=== PATIENT | female | born 1995 | race Two or more races ===

== ENCOUNTER → 2017-02-08 | Outpatient (CLI) | payer SELFPAY ==
[~2017-02-08] MED LIST: ACET325T PO; CALNTAB; FOLI400T PO
[2017-02-08 09:06] LABS: BASOPHIL % 0.3 % (0.0-2.0); EOSINOPHIL # 0.2 TH/MM3 (0-0.4); EOSINOPHIL % 2.3 % (0.0-4.0); HEMATOCRIT 31.6 % (35.0-46.0); HEMO FLAGS DIFF FINAL; LYMPH % 26.1 % (9.0-44.0); MEAN CELL VOLUME 84.8 FL (80.0-100.0); MEAN CORPUSCULAR HEMOGLOBIN 27.5 PG (27.0-34.0); MEAN CORPUSCULAR HGB CONC 32.4 % (32.0-36.0); MONO % 6.2 % (0.0-8.0); NEUT % 65.1 % (16.0-70.0); PLATELET COUNT 324 TH/MM3 (150-450); RED BLOOD COUNT 3.72 MIL/MM3 (4.00-5.30); RED CELL DISTRIBUTION WIDTH 15.4 % (11.6-17.2); WHITE BLOOD COUNT 7.7 TH/MM3 (4.0-11.0)
[2017-02-08 10:57] LABS: CREAT 24 TIMED 30.9 MG/DL; URINE TOTAL PROTEIN TIMED 273.1 MG/DL
== END ==
LOC: EDBD → CLAB 02-06 10:38
PROVIDERS: ATTEND Obstetrics & Gynecology
DX: O26.832 Pregnancy related renal disease, second trimester (principal); Z13.0 Encounter for screening for diseases of the blood and blood-forming organs and certain disorders involving the immune mechanism
CPT/HCPCS: 36415; 82575; 84157; 85025

== ENCOUNTER 2017-02-09 10:19 | Inpatient (IN) | payer MEDICAID ==
[2017-02-09] VITALS (27 sets, daily range): BP systolic 112–133; BP diastolic 55–82; PULSE 65–87; RESP 18; TEMP 97.8–98.7
[~2017-02-09] VITALS: Ht 165.1 cm; Wt 79.8 kg
[2017-02-09] MEDS ORDERED: CALNTAB (11:15)
[2017-02-09] MEDS ORDERED: FOLI400T PO (11:15)
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
[2017-02-09] MEDS ORDERED: LACTATED RINGER'S 1000 ML INJ 1,000 ML IV SCH (11:52)
[2017-02-09 11:55] LABS: BACTERIA, URINE OCC /hpf; BLOOD, URINE TRACE (NEG); COMMENT (UR) CULT NOT INDICATED; CULTURE IF INDICATED CULT NOT INDICATED; GLUCOSE,URINE NEG (NEG); KETONE, URINE NEG (NEG); MUCUS URINE FEW /lpf (OCC); NITRITE,URINE NEG (NEG); SQUAMOUS EPITHELIAL CELL URINE 9 /hpf (0-5); TRANSITIONAL EPI CELLS, URINE <1 /hpf; URINE COLOR LIGHT-YELLOW (YELLW/STRAW)
[2017-02-09] MEDS ORDERED: ONDANSETRON ODT 4 MG TAB PO PRN (12:00)
[2017-02-09] MEDS ORDERED: SODIUM CHLORIDE 0.9% FLUSH 10 ML FLUSH IV FLUSH PRN ×2 (12:00→13:45)
[2017-02-09] MEDS: SODIUM CHLOR 0.9% 1000 ML INJ 1,000 ML IV SCH ×2 (12:00→20:00)
[2017-02-09 12:16] LABS: AUTOMATED NEUTROPHIL # 5.1 TH/MM3 (1.8-7.7); BASOPHIL % 0.5 % (0.0-2.0); EOSINOPHIL # 0.1 TH/MM3 (0-0.4); EOSINOPHIL % 1.5 % (0.0-4.0); HEMATOCRIT 31.7 % (35.0-46.0); HEMO FLAGS DIFF FINAL; LYMPH % 21.2 % (9.0-44.0); LYMPHOCYTE # 1.5 TH/MM3 (1.0-4.8); MEAN CELL VOLUME 84.6 FL (80.0-100.0); MEAN CORPUSCULAR HEMOGLOBIN 27.7 PG (27.0-34.0); MEAN CORPUSCULAR HGB CONC 32.7 % (32.0-36.0); NEUT % 69.8 % (16.0-70.0); PLATELET COUNT 324 TH/MM3 (150-450); RED BLOOD COUNT 3.75 MIL/MM3 (4.00-5.30); RED CELL DISTRIBUTION WIDTH 15.6 % (11.6-17.2); WHITE BLOOD COUNT 7.3 TH/MM3 (4.0-11.0)
[2017-02-09 12:35] LABS: ALT (GPT) 17 U/L (10-53); ANION GAP 12 MEQ/L (5-15); AST (GOT) 15 U/L (15-37); BICARBONATE 15.1 MEQ/L (21.0-32.0); BLOOD UREA NITROGEN 26 MG/DL (7-18); CHLORIDE 115 MEQ/L (98-107); GLOMERULAR FILTRATION RATE 27 ML/MIN (>89); POTASSIUM 4.2 MEQ/L (3.5-5.1); SODIUM (NA) 142 MEQ/L (136-145); URIC ACID 7.9 MG/DL (2.6-6.0)
[2017-02-09 12:37] LABS: ALKALINE PHOSPHATASE 241 U/L (45-117); TOTAL BILIRUBIN ADULT 0.1 MG/DL (0.2-1.0)
[2017-02-09] MEDS ORDERED: LACTATED RINGER'S 1000 ML INJ 1,000 ML IV PRN (13:38)
[2017-02-09] MEDS ORDERED: CITRIC ACID-SODIUM CITRATE LIQ 30 ML UDC PO SCH (13:45)
[2017-02-09] MEDS ORDERED: LIDOCAINE HCL 1% 50 ML VIAL I-DERMAL PRN (13:45)
[2017-02-09] MEDS ORDERED: MINERAL OIL 10 ML VIAL TOPICAL PRN (13:45)
[2017-02-09] MEDS ORDERED: OXYTOCIN 30 UNITS-500ML PREMIX 500 ML IV ONE (13:45)
[2017-02-09] MEDS ORDERED: SODIUM CHLORID 0.9% 500 ML INJ 500 ML IV PRN (13:45)
[2017-02-09] MEDS ORDERED: PENICILLIN G POTASSIUM INJ 5,000,000 UNITS in SODIUM CHLORIDE 0.9% INJ 100 ML IV ONE (13:45)
[2017-02-09] MEDS ORDERED: LIDOCAINE HCL 1% 50 ML VIAL INFIL PRN (13:45)
[2017-02-09] MEDS ORDERED: SODIUM CHLOR 0.9% 1000 ML INJ 1,000 ML IV PRN (13:58)
[2017-02-09] MEDS: MISOPROSTOL 25 MCG SUPP VAGINAL PRN ×2 (15:02→18:39)
[2017-02-09] MEDS: LACTATED RINGER'S 1000 ML INJ 1,000 ML IV SCH ×2 (15:02→21:38)
[2017-02-09] MEDS ORDERED: ACETAMINOPHEN 325 MG TAB PO PRN (17:30)
[2017-02-09] MEDS: PENICILLIN G POTASSIUM INJ 2,500,000 UNITS in SODIUM CHLORIDE 0.9% INJ 100 ML IV SCH ×2 (18:00→22:00)
[2017-02-09] MEDS ORDERED: SODIUM CHLORIDE 0.9% FLUSH 10 ML FLUSH IV FLUSH SCH (21:00)
[2017-02-09] MEDS: SODIUM CHLORIDE 0.9% FLUSH 10 ML FLUSH IV FLUSH SCH (21:00)
[2017-02-09] MEDS ORDERED: ZOLPIDEM TARTRATE 10 MG TAB PO PRN (23:00)
[2017-02-10] VITALS (48 sets, daily range): BP systolic 95–147; BP diastolic 51–91; PULSE 65–99; RESP 16–18; TEMP 97.6–98.6; O2SAT 100
[2017-02-10] MEDS: PENICILLIN G POTASSIUM INJ 2,500,000 UNITS in SODIUM CHLORIDE 0.9% INJ 100 ML IV SCH ×4 (02:00→14:00)
[2017-02-10] MEDS: SODIUM CHLOR 0.9% 1000 ML INJ 1,000 ML IV SCH ×3 (04:00→19:46)
[2017-02-10] MEDS: MISOPROSTOL 25 MCG SUPP VAGINAL PRN ×2 (05:14→09:34)
[2017-02-10 05:30] LABS: AUTOMATED NEUTROPHIL # 4.4 TH/MM3 (1.8-7.7); BASOPHIL % 0.3 % (0.0-2.0); EOSINOPHIL # 0.2 TH/MM3 (0-0.4); EOSINOPHIL % 2.2 % (0.0-4.0); HEMATOCRIT 27.3 % (35.0-46.0); HEMO FLAGS DIFF FINAL; LYMPH % 27.1 % (9.0-44.0); LYMPHOCYTE # 1.9 TH/MM3 (1.0-4.8); MEAN CELL VOLUME 84.9 FL (80.0-100.0); MEAN CORPUSCULAR HEMOGLOBIN 27.7 PG (27.0-34.0); MEAN CORPUSCULAR HGB CONC 32.6 % (32.0-36.0); MONO % 6.2 % (0.0-8.0); NEUT % 64.2 % (16.0-70.0); PLATELET COUNT 277 TH/MM3 (150-450); RED BLOOD COUNT 3.22 MIL/MM3 (4.00-5.30); RED CELL DISTRIBUTION WIDTH 15.4 % (11.6-17.2); WHITE BLOOD COUNT 6.9 TH/MM3 (4.0-11.0)
[2017-02-10 05:53] LABS: BICARBONATE 14.7 MEQ/L (21.0-32.0); POTASSIUM 4.1 MEQ/L (3.5-5.1)
--- NOTE | 2017-02-10 08:08 | PD.LABORPN ---
Subjective Subjective Patient seen and examined this morning. Afebrile vital signs stable. Currently being induced with Cytotec. She reports that her pain is only a little bit, and she is happy with the plan of care to prepare delivering the baby. (Moose Grover MD R2) Objective Vital Signs Vital Signs Date Time Temp Pulse Resp B/P Pulse Ox O2 Delivery O2 Flow Rate FiO2 02/10/17 07:33 98.0 93 16 122/76 02/10/17 05:05 87 18 126/80 02/10/17 05:05 97.6 02/10/17 00:37 18 02/10/17 00:37 83 110/58 Objective Pelvic Exam: Cervix: soft Dilatation: 1 Effacement: 40 Station: -3 Presentation: vertex Membranes: Intact Uterine Contractions: Infrequent FHT's: Category: 1 Baseline: 125 Reactive: Up to 160 Variability: moderate Decels: None (Moose Grover MD R2) Assessment/Plan Problem List: (1) Intrauterine Assessment and Plan 22-year-old female at 37/2 weeks gestational age. With proteinuria being induced with Cytotec. 1 intrauterine : Induction, GBS positive -Continue his history of heart racing: Category 1 -Continuous monitoring for contractions -Induction with Cytotec -Prophylactic antibiotics with penicillin -Continue expectant management wdw: Dr. Hopper (Moose Grover MD R2) Collaborating MD Comments 37 weeks gestation with nephrotic range proteinuria. S/p cytotec x 3. May continue cytotec vs chicas bulb vs pitocin. Will need nephrology consult and renal ultrasound (Orquidea Hopper MD) Moose Grover MD R2 Feb 10, 2017 08:08 Orquidea Hopper MD Feb 10, 2017 08:24
[2017-02-10] MEDS: SODIUM CHLORIDE 0.9% FLUSH 10 ML FLUSH IV FLUSH SCH ×2 (09:00→20:39)
[2017-02-10] MEDS: LACTATED RINGER'S 1000 ML INJ 1,000 ML IV SCH ×3 (09:35→21:38)
--- NOTE | 2017-02-10 09:35 | HHI.PR ---
ELECTRONIC MUSICAL INSTRUMENT REPAIRER Note Note Cytotec 25mcg placed vaginally FHR 140, reactive Category 1 tracing, no decelerations Cx 150/-3 Laboratory Tests Test 02/09/17 02/09/17 02/09/17 02/10/17 10:30 11:45 14:10 04:56 Urine Color LIGHT-YELLOW Urine Turbidity HAZY Urine pH 7.0 Urine Specific [place] 1.005 Urine Protein 300 mg/dL Urine Glucose (UA) NEG mg/dL Urine Ketones NEG mg/dL Urine Occult Blood TRACE Urine Nitrite NEG Urine Bilirubin NEG Urine Urobilinogen LESS THAN 2.0 MG/DL Urine Leukocyte Esterase SMALL Urine RBC 1 /hpf Urine WBC 4 /hpf Urine Squamous Epithelial 9 /hpf Cells Urine Transitional Epithelial <1 /hpf Cells Urine Bacteria OCC /hpf Urine Mucus FEW /lpf Microscopic Urinalysis Comment CULT NOT INDICATED White Blood Count 7.3 TH/MM3 6.9 TH/MM3 Red Blood Count 3.75 MIL/MM3 3.22 MIL/MM3 Hemoglobin 10.4 GM/DL 8.9 GM/DL Hematocrit 31.7 % 27.3 % Mean Corpuscular Volume 84.6 FL 84.9 FL Mean Corpuscular Hemoglobin 27.7 PG 27.7 PG Mean Corpuscular Hemoglobin 32.7 % 32.6 % Concent Red Cell Distribution Width 15.6 % 15.4 % Platelet Count 324 TH/MM3 277 TH/MM3 Mean Platelet Volume 7.3 FL 7.5 FL Neutrophils (%) (Auto) 69.8 % 64.2 % Lymphocytes (%) (Auto) 21.2 % 27.1 % Monocytes (%) (Auto) 7.0 % 6.2 % Eosinophils (%) (Auto) 1.5 % 2.2 % Basophils (%) (Auto) 0.5 % 0.3 % Neutrophils # (Auto) 5.1 TH/MM3 4.4 TH/MM3 Lymphocytes # (Auto) 1.5 TH/MM3 1.9 TH/MM3 Monocytes # (Auto) 0.5 TH/MM3 0.4 TH/MM3 Eosinophils # (Auto) 0.1 TH/MM3 0.2 TH/MM3 Basophils # (Auto) 0.0 TH/MM3 0.0 TH/MM3 CBC Comment DIFF FINAL DIFF FINAL Differential Comment Sodium Level 142 MEQ/L 143 MEQ/L Potassium Level 4.2 MEQ/L 4.1 MEQ/L Chloride Level 115 MEQ/L 118 MEQ/L Carbon Dioxide Level 15.1 MEQ/L 14.7 MEQ/L Anion Gap 12 MEQ/L 10 MEQ/L Blood Urea Nitrogen 26 MG/DL 29 MG/DL Creatinine 2.22 MG/DL 2.08 MG/DL Estimat Glomerular Filtration 27 ML/MIN 30 ML/MIN Rate Random Glucose 74 MG/DL 66 MG/DL Uric Acid 7.9 MG/DL Calcium Level 9.1 MG/DL 8.5 MG/DL Total Bilirubin 0.1 MG/DL Aspartate Amino Transf 15 U/L (AST/SGOT) Alanine Aminotransferase 17 U/L (ALT/SGPT) Alkaline Phosphatase 241 U/L Total Protein 6.6 GM/DL Albumin 2.1 GM/DL Blood Type A POSITIVE Blood Bank Comment Band and Hold Complement C3 132 MG/DL Complement C4 33 MG/DL Orquidea Hopper MD Feb 10, 2017 09:35
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
--- NOTE | 2017-02-10 13:44 | PD.LABORPN ---
Subjective Subjective Labor induction for proteinuria CX 1/50/-3/vtx [after 4 doses of cytotec] AROM clear IUPC /FSE inserted FHR reactive and CTXing q 5 -6 min Objective Vital Signs Vital Signs Date Time Temp Pulse Resp B/P Pulse Ox O2 Delivery O2 Flow Rate FiO2 02/10/17 12:25 98.0 16 02/10/17 12:24 69 114/70 02/10/17 09:35 16 02/10/17 09:35 70 115/78 02/10/17 07:33 98.0 93 16 122/76 Objective Pelvic Exam: Cervix: [-] Dilatation: [-1] Effacement: [50-] Station: [-3] Presentation: [vtx-] Membranes: [ AROM ruptured] Uterine Contractions: [-q 5 min] FHT's: Category: [-1] Baseline: [144-] Reactive: [-yes] Variability: [mod-] Decels: [-none] Assessment/Plan Problem List: (1) Intrauterine Dylan Lynch II, MD Feb 10, 2017 13:44
[2017-02-10] MEDS ORDERED: PENICILLIN G POT 5,000,000 UNITS/NS 100 ML(Mini-Bag Plus) IV ONE ×2 (15:00)
--- NOTE | 2017-02-10 15:50 | HHI.NPPN ---
Subjective History of Present Illness 22 year old with elevated cr 37 weeks of and proteinuria Objective Data Data Vital Signs Date Time Temp Pulse Resp B/P Pulse Ox O2 Delivery O2 Flow Rate FiO2 02/10/17 14:42 67 125/80 02/10/17 14:41 98.3 18 02/10/17 13:47 66 124/87 02/10/17 13:46 18 02/10/17 12:25 98.0 16 02/10/17 12:24 69 114/70 02/10/17 09:35 16 02/10/17 09:35 70 115/78 02/10/17 07:33 98.0 93 16 122/76 02/10/17 05:05 87 18 126/80 02/10/17 05:05 97.6 02/10/17 00:37 18 02/10/17 00:37 83 110/58 02/09/17 21:57 71 18 124/82 02/09/17 21:55 97.8 02/09/17 21:45 124/82 02/09/17 21:15 71 02/09/17 20:13 74 18 114/68 02/09/17 19:10 71 02/09/17 19:08 98.7 02/09/17 19:07 18 02/09/17 19:05 65 02/09/17 18:45 66 121/78 02/09/17 18:45 18 02/09/17 17:11 76 112/68 02/09/17 17:10 98.3 18 02/09/17 16:08 18 02/09/17 16:06 80 133/82 -: 02/10/17 0456 02/10/17 0456 Physical Exam General Appearance: Well Developed, Well Nourished Neck Neck Exam: Neck Supple Pulmonary Resp Exam: Clear Bilaterally, Breath Sounds Equal Cardiology CV Exam: Regular, Normal Sinus Rhythm Gastrointestinal/Abdomen GI Exam: Distended Extremeties Extremities Exam: Trace Edema Neurologic Neuro Exam: Alert Assessment/Plan Problem List: (1) Acute renal failure Plan: Cr declined lack of hypertension indicates benign etiology again systemic disease like Lupus are commonly associated with hypertension Proteinuria may improve post I told her we do not have enough information at this time she is been induced to deliver JOVITA : possible explanation could be hydronephrosis due to advance which is reversible Dr. Dugan to follow on Sunday (2) Intrauterine Plan: Term likely to deliver Problem Qualifiers (1) Acute renal failure: Qualified Code: N17.9 - Acute renal failure, unspecified acute renal failure type China Castro MD Feb 10, 2017 15:50
[2017-02-10] MEDS ORDERED: OXYTOCIN 30 UNITS-500ML PREMIX 500 ML IV SCH (16:00)
[2017-02-10] MEDS: PENICILLIN G POT 2,500,000 UNITS/NS 100 ML IV SCH ×4 (18:30→23:08)
[2017-02-10] MEDS ORDERED: fentaNYL 2MCG-BUPIV 0.125% INJ 100 ML ONE (20:11)
[2017-02-10] MEDS ORDERED: ePHEDrine/NS 25 MG/5 ML SYR ONE (20:12)
[2017-02-10] MEDS ORDERED: DO NOT ADMINISTER ANTICOAGULANTS XX PRN (22:00)
[2017-02-10] MEDS ORDERED: NO SYSTEM NARCOTICS XX PRN (22:00)
[2017-02-10] MEDS ORDERED: fentaNYL 2MCG-BUPIV 0.125% 100 ML EPIDURAL SCH (22:00)
[2017-02-10] MEDS ORDERED: ePHEDrine/NS 25 MG/5 ML SYR IV PRN (22:00)
[2017-02-11] VITALS (13 sets, daily range): BP systolic 101–135; BP diastolic 61–89; PULSE 73–106; RESP 18; TEMP 98–98.9
[2017-02-11] MEDS: LACTATED RINGER'S 1000 ML INJ 1,000 ML IV SCH (00:03)
[2017-02-11] MEDS ORDERED: IBUPROFEN 600 MG TAB ONE (02:04)
[2017-02-11] MEDS ORDERED: oxyCODONE/ACETAMINOPHEN 5 MG/325 MG TAB ONE (02:04)
[2017-02-11] MEDS: PENICILLIN G POT 2,500,000 UNITS/NS 100 ML IV SCH ×2 (02:45)
[2017-02-11] MEDS ORDERED: ONDANSETRON ODT 4 MG TAB PO PRN (04:30)
[2017-02-11] MEDS ORDERED: WITCH HAZEL 50%/GLYCERIN 12.5% 40 PAD JAR TOP PRN (04:30)
[2017-02-11] MEDS ORDERED: ACETAMINOPHEN 325 MG TAB PO PRN (04:30)
[2017-02-11] MEDS ORDERED: BENZOCAINE 20% TOPICAL SPRAY 60 ML CAN TOP PRN (04:30)
[2017-02-11] MEDS ORDERED: ALUMINUM/MAGNESIUM/SIMETH 30 ML CUP PO PRN (04:30)
[2017-02-11] MEDS ORDERED: ZOLPIDEM TARTRATE 5 MG TAB PO PRN (04:30)
[2017-02-11] MEDS ORDERED: DISCONTINUE ALL PREVIOUS ORDERS XX ONE (04:30)
--- NOTE | 2017-02-11 07:29 | PD.OB.DELI ---
Anesthesia: Epidural Episiotomy: Midline Vaginal Delivery: Normal Presentation: Occiput anterior Nuchal Cord: None Delayed cord clamping (45 sec): No Infant: Male One Minute : 8 Five Minute : 9 Weight: 3000 gm Care: Suctioned, Spontaneous crying, Responded to stimulation Placenta: Spontaneous delivery, Intact Laceration: Episiotomy, 2 deg Repair: Chromic running Additional Information Delivery occurred at 1 am but the computer was down and the note could not be made until 730 am Dylan Lynch II, MD Feb 11, 2017 07:29
[2017-02-11] MEDS: oxyCODONE/ACETAMINOPHEN 5 MG/325 MG 2 TABS PO PRN ×2 (08:29→14:17)
[2017-02-11] MEDS: IBUPROFEN 600 MG TAB PO PRN ×2 (08:29→20:42)
[2017-02-11] MEDS ORDERED: DIPHTH/TETANUS/ACEL PERTUSSIS (BOOSTER) 0.5 ML VIAL/PFS IM ONE (16:00)
[2017-02-11] MEDS ORDERED: MEASLES, MUMPS, RUBELLA VACCINE 0.5 ML VIAL SQ ONE (16:00)
[2017-02-11] MEDS: oxyCODONE/ACETAMINOPHEN 5 MG/325 MG TAB PO PRN (20:43)
[2017-02-12] MEDS: IBUPROFEN 600 MG TAB PO PRN ×4 (02:30→21:04)
[2017-02-12] MEDS: oxyCODONE/ACETAMINOPHEN 5 MG/325 MG TAB PO PRN ×4 (02:30→21:04)
[2017-02-12 05:48] LABS: BICARBONATE 17.3 MEQ/L (21.0-32.0)
--- NOTE | 2017-02-12 07:36 | HHI.OB ---
Subjective Post Day: 1 Remarks Patient seen and examined this morning. AFVSS overnight. day #1. Pain is well controlled. Decreased lochia. Denies dysuria. No breast tenderness. She is feeding the baby via breast without any reported issues. Appetite good. No nausea or vomiting. Ambulating well. Denies headaches, visual changes, calf pain, shortness of breath, or cough. She has no other complaints or concerns this morning. (Donnie Valdez MD R1) Objective Vitals/I&O Vital Signs Date Time Temp Pulse Resp B/P Pulse Ox O2 Delivery O2 Flow Rate FiO2 02/12/17 03:30 18 02/12/17 03:30 18 02/11/17 19:36 98.3 73 18 110/72 02/11/17 08:00 98.0 78 18 02/11/17 08:00 118/82 Objective Remarks GENERAL: Well-nourished, well-developed patient. CARDIOVASCULAR: Regular rate and rhythm without murmurs, gallops, or rubs. RESPIRATORY: Breath sounds equal bilaterally. No accessory muscle use. ABDOMEN/GI: Abdomen soft, non-tender. Fundus: Firm, non-tender at umbilicus. GENITOURINARY: Light bleeding. EXTREMITIES: No cyanosis or lower extremity edema, non-tender, without signs of DVT. Medications and IVs Current Medications Medications (Trade) Dose Ordered Sig/Michel Route Start Time Stop Time Status Last Admin (Tylenol) 650 mg Q4H PRN PO 02/11/17 04:30 (Motrin) 600 mg Q6H PRN PO 02/11/17 04:30 02/12/17 02:30 (Percocet 5-325 Mg) 1 tab Q4H PRN PO 02/11/17 04:30 02/12/17 02:30 (Percocet 5-325 Mg) 2 tab Q4H PRN PO 02/11/17 04:30 02/11/17 14:17 (Americaine 20% Top Spr) 1 spray Q4H PRN TOP 02/11/17 04:30 02/11/17 08:28 (Tucks Pads) 1 applic Q6H PRN TOP 02/11/17 04:30 02/11/17 08:28 (Nandini-Colace) 2 tab Q12H PRN PO 02/11/17 04:30 (Ambien) 5 mg HS PRN PO 02/11/17 04:30 (Mag-Al Plus Susp Liq) 15 ml Q8H PRN PO 02/11/17 04:30 (Zofran Odt) 4 mg Q6H PRN PO 02/11/17 04:30 (Flu (Quadrivalent) Vaccine Inj) 0.5 ml ONCE ONCE IM 02/12/17 10:00 02/12/17 10:01 02/12/17 00:26 (Donnie Valdez MD R1) Assessment/Plan Problem List: (1) care following vaginal delivery (2) Chronic kidney disease Assessment and Plan 22 year old now PPD#1. 1. Care - AFVSS - Encouraged OOB, as tolerated - Advised pelvic rest x 6 weeks - - Contraception:does not desire at this time - Will f/u with OB provider in 6 weeks - Anticipate discharge tomorrow 02/13/2017 2. Chronic kidney disease - Cr remains elevated 2.18 today - BP within normal limits - Nephrology consulted, appreciate recommendations - Initial workup and serology per nephrology pending - Will follow up with nephrology 6-8 weeks for further evaluation wdw Dr. Hopper (Donnie Valdez MD R1) Collaborating MD Comments Will need appt for nephrology after discharge (Orquidea Hopper MD) Donnie Valdez MD R1 Feb 12, 2017 07:36 Orquidea Hopper MD Feb 12, 2017 09:54
[2017-02-12] MEDS ORDERED: ACET325T PO (08:16)
[2017-02-12] MEDS: DOCUSATE SODIUM 50 MG/SENNA 8.6 MG TAB PO PRN (08:23)
[2017-02-12] MEDS ORDERED: INFLUENZA VIRUS VACCINE (QUADRIVALENT) 0.5 ML SYR IM ONE (10:00)
--- NOTE | 2017-02-12 14:21 | HHI.DCPOC ---
Discharge Care Plan Diagnosis: (1) care following vaginal delivery (2) Proteinuria affecting in third trimester (3) Chronic kidney disease Report Symptoms to Your Doctor -Temperate above 100.5 degrees -Redness, of incision or excessive or foul smelling drainage -Unusual pain or calf pain -Increased vaginal bleeding -Painful or difficulty urinating -Feelings of extreme sadness or anxiety after 2 weeks Goals to Promote Your Health * To prevent worsening of your condition and complications, make sure to follow up with your OB provider within 6 weeks as well as a kidney doctor within 4 weeks following discharge from our hospital. Directions to Meet Your Goals Take your medications as prescribed Follow your dietary instruction Follow activity as directed Ensure plenty of rest for recovery Drink fluids for hydration Keep your appointments as scheduled Take your immunizations and boosters as scheduled If your symptoms worsen call your PCP, if no PCP go to Urgent Care Center or Emergency Room Smoking is Dangerous to Your Health. Avoid second hand smoke Call the 24-hour crisis hotline for domestic abuse at Donnie Valdez MD R1 Feb 12, 2017 14:21
[2017-02-12 15:04] LABS: RAPID PLASMA REAGIN SCREEN NON-REACTIVE (NON-REACTVE)
[2017-02-12 19:30] VITALS: BP 125/78; PULSE 80; RESP 18; TEMP 98.3
--- NOTE | 2017-02-12 19:51 | HHI.NPPN ---
Subjective History of Present Illness 22-year-old female with a history of for 37 weeks gestation, came to the emergency department because of protein in the urine. Interval History Patient has induced labor and now post Additional Remarks Patient is alert, no SOB, no headache, mild abd. discomfort. Objective Data Data Vital Signs Date Time Temp Pulse Resp B/P Pulse Ox O2 Delivery O2 Flow Rate FiO2 02/12/17 03:30 18 02/12/17 03:30 18 -: 02/10/17 0456 02/12/17 0527 Physical Exam General Appearance: Well Developed, Well Nourished, No Acute Distress, Comfortable Neck Neck Exam: Neck Supple Pulmonary Resp Exam: Clear Bilaterally, Breath Sounds Equal Cardiology CV Exam: Regular, Normal Sinus Rhythm Gastrointestinal/Abdomen GI Exam: Distended Extremeties Extremities Exam: Trace Edema Neurologic Neuro Exam: Alert, Awake, Oriented Assessment/Plan Problem List: (1) Acute renal failure Plan: Patient has stable Creatinine of 2.0-2.2. Has Nephrotic Proteinuria. lack of hypertension indicates benign etiology Proteinuria may improve post . BP is normal. Now for possible D/C. She will need to follow by her PCP and refer to Nephrology. If proteinuria persist 8 weeks after delivery, will need Biopsy of the kidney. This explained to the patient with the help of rotary engine assembler. (2) Intrauterine Plan: Term likely to deliver Problem Qualifiers (1) Acute renal failure: Qualified Code: N17.9 - Acute renal failure, unspecified acute renal failure type Marly Dugan MD Feb 12, 2017 19:51
[2017-02-12 21:15] VITALS: BP 123/74; PULSE 76; RESP 18; TEMP 98.3
[2017-02-13] MEDS: IBUPROFEN 600 MG TAB PO PRN ×2 (03:07→09:12)
[2017-02-13] MEDS: oxyCODONE/ACETAMINOPHEN 5 MG/325 MG TAB PO PRN ×2 (03:08→09:12)
--- NOTE | 2017-02-13 07:25 | HHI.OB ---
Subjective Post Day: 2 Remarks Patient seen and examined this morning. AFVSS overnight. day #2. Pain is well controlled. Decreased lochia. Denies dysuria. No breast tenderness. She is feeding the baby via breast and formula. Appetite is good. Denies nausea or vomiting. Ambulating well without issues. Denies headaches, visual changes, calf pain, shortness of breath, or cough. Objective Vitals/I&O Vital Signs Date Time Temp Pulse Resp B/P Pulse Ox O2 Delivery O2 Flow Rate FiO2 02/12/17 21:15 98.3 76 18 123/74 02/12/17 19:30 98.3 80 18 125/78 Objective Remarks GENERAL: Well-nourished, well-developed patient. CARDIOVASCULAR: Regular rate and rhythm without murmurs, gallops, or rubs. RESPIRATORY: Breath sounds equal bilaterally. No accessory muscle use. ABDOMEN/GI: Abdomen soft, non-tender. Fundus: Firm, non-tender at umbilicus. GENITOURINARY: Light bleeding. EXTREMITIES: No cyanosis or lower extremity edema, non-tender, without signs of DVT. Medications and IVs Current Medications Medications (Trade) Dose Ordered Sig/Michel Route Start Time Stop Time Status Last Admin (Tylenol) 650 mg Q4H PRN PO 02/11/17 04:30 (Motrin) 600 mg Q6H PRN PO 02/11/17 04:30 02/13/17 03:07 (Percocet 5-325 Mg) 1 tab Q4H PRN PO 02/11/17 04:30 02/13/17 03:08 (Percocet 5-325 Mg) 2 tab Q4H PRN PO 02/11/17 04:30 02/11/17 14:17 (Americaine 20% Top Spr) 1 spray Q4H PRN TOP 02/11/17 04:30 02/11/17 08:28 (Tucks Pads) 1 applic Q6H PRN TOP 02/11/17 04:30 02/11/17 08:28 (Nandini-Colace) 2 tab Q12H PRN PO 02/11/17 04:30 02/12/17 08:23 (Ambien) 5 mg HS PRN PO 02/11/17 04:30 (Mag-Al Plus Susp Liq) 15 ml Q8H PRN PO 02/11/17 04:30 (Zofran Odt) 4 mg Q6H PRN PO 02/11/17 04:30 Assessment/Plan Problem List: (1) care following vaginal delivery (2) Chronic kidney disease Assessment and Plan 22 year old now PPD#2. 1. Care - AFVSS - Encouraged OOB, as tolerated - Advised pelvic rest x 6 weeks - Breast and formula feeding - Contraception:does not desire at this time - Will f/u with OB provider in 6 weeks - Stable for discharge today 2. Chronic kidney disease - Cr remaining elevated - BP within normal limits - Nephrology consulted, appreciate recommendations - Will follow up with a primary care physician with referral to nephrology for further workup if she continues to have proteinuria 8 weeks after per nephrology wdw Donnie Wheat MD R1 Feb 13, 2017 07:25
[2017-02-13] MEDS: DOCUSATE SODIUM 50 MG/SENNA 8.6 MG TAB PO PRN (09:11)
[2017-02-14 17:52] LABS: MYELOPEROXIDASE LESS THAN 1.0 AI (<1.0); PROTEINASE-3 LESS THAN 1.0 AI (<1.0)
== END 2017-02-13 14:12 | disposition home or self-care (01) | DRG 775 ==
LOC: HOBED 10:19 → EDBD 10:19 → H2EA 11:54 → OBSVTOIN 13:49 → H1EA 02-11 02:55
PROVIDERS: ADMIT Obstetrics & Gynecology Obstetrics; ATTEND Obstetrics & Gynecology Obstetrics
PROC: 3E0P7GC Introduction of Other Therapeutic Substance into Female Reproductive, Via Natural or Artificial Opening (ICD-10-PCS; 2017-02-09)
PROC: 3E0S3CZ (ICD-10-PCS; 2017-02-10)
PROC: 00HU33Z Insertion of Infusion Device into Spinal Canal, Percutaneous Approach (ICD-10-PCS; 2017-02-10)
PROC: 10E0XZZ Delivery of Products of Conception, External Approach (ICD-10-PCS; principal; 2017-02-11)
PROC: 0W8NXZZ Division of Female Perineum, External Approach (ICD-10-PCS; 2017-02-11)
DX: O26.833 Pregnancy related renal disease, third trimester (principal); N17.9 Acute kidney failure, unspecified; N18.9 Chronic kidney disease, unspecified; D64.9 Anemia, unspecified; O99.02 Anemia complicating childbirth; Z86.19 Personal history of other infectious and parasitic diseases; O09.33 Supervision of pregnancy with insufficient antenatal care, third trimester; Z3A.37 37 weeks gestation of pregnancy; Z37.0 Single live birth; Z23 Encounter for immunization
CPT/HCPCS: 59025; 76816; 76819; 76820; 80048; 80053; 81001; 84550; 85025; 86021; 86038; 86160; 86592; 86900; 86901; 90686; 90715; 99285; J2540; J2590; J3010; J7030; J7120; Q2038

== ENCOUNTER 2017-05-18 11:06 | Emergency (ER) | payer MEDICAID ==
[~2017-05-18] VITALS: Ht 160 cm; Wt 75.0 kg
[2017-05-18 11:08] VITALS: BP 119/92; PULSE 90; RESP 16; TEMP 98.8; O2SAT 99
[2017-05-18] MEDS ORDERED: SODIUM CHLOR 0.9% 1000 ML INJ 1,000 ML IV SCH (12:13)
[2017-05-18] MEDS ORDERED: SODIUM CHLORIDE 0.9% FLUSH 10 ML FLUSH IV FLUSH PRN (12:15)
--- NOTE | 2017-05-18 12:17 | PD ---
HPI Chief Complaint: Abdominal Pain Time Seen by Provider: 12:13 Travel History International Travel<30 days: No Contact w/Intl Traveler<30days: No Traveled to known affect area: No History of Present Illness HPI 22-year-old female presents to the emergency department for evaluation of lower abdominal pain that started approximately 2-3 days ago. 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 She also reports bright red blood in her stool for approximately 15 days. However, in the past 2-3 days, she has noticed some blood clots as well. That is when the abdominal pain started. Patient recently gave in January of this year. She denies any abnormal vaginal discharge. She states she only has bleeding from her vagina when she is having a menstrual cycle. She denies any chance of . She denies any previous abdominal surgeries. Patient denies any urinary symptoms. She does state that she has pain only with she defecates. Patient denies any fevers or chills. No shortness of breath. No nausea or vomiting. Patient denies any risk of STDs reporting monogamous relationship with her . Patient denies having any chronic medical problems or taking any prescribed medications. [facility] Past Medical History Medical History: Denies Significant Hx ?: Not Past Surgical History Surgical History: No Previous Surgery Social History Alcohol Use: No Tobacco Use: No Substance Use: No Allergies-Medications (Allergen,Severity, Reaction): Coded Allergies: No Known Allergies (Unverified , 02/10/17) Reported Meds & Prescriptions Reported Meds & Active Scripts Active No Active Prescriptions or Reported Medications Review of Systems Except as stated in HPI: all other systems reviewed are Neg Physical Exam Narrative GENERAL: Well-nourished, well-developed female patient, ambulatory. Afebrile. SKIN: Focused skin assessment warm/dry. HEAD: Normocephalic. Atraumatic. EYES: No scleral icterus. No injection or drainage. NECK: Supple, trachea midline. No JVD or lymphadenopathy. CARDIOVASCULAR: Regular rate and rhythm without murmurs, gallops, or rubs. RESPIRATORY: Breath sounds equal bilaterally. No accessory muscle use. Lungs sounds are clear to auscultation. GASTROINTESTINAL: Abdomen soft and nondistended. Mild tenderness to palpation over lower abdomen. MUSCULOSKELETAL: No cyanosis, or edema. BACK: Nontender without obvious deformity. No CVA tenderness. RECTAL EXAM: No masses or tenderness, stool is brown. Hemoccult is negative. Exam was done with KYLER Bae, at bedside. Data Data Last Documented VS Vital Signs Date Time Temp Pulse Resp B/P Pulse Ox O2 Delivery O2 Flow Rate FiO2 05/18/17 12:25 98 05/18/17 11:08 98.8 90 16 119/92 Orders Complete Blood Count With Diff (05/18/17 12:13) Comprehensive Metabolic Panel (05/18/17 12:13) Lipase (05/18/17 12:13) Urinalysis - C+S If Indicated (05/18/17 12:13) Iv Access Insert/Monitor (05/18/17 12:13) Ecg Monitoring (05/18/17 12:13) Oximetry (05/18/17 12:13) Sodium Chlor 0.9% 1000 Ml Inj (Ns 1000 M (05/18/17 12:13) Sodium Chloride 0.9% Flush (Ns Flush) (05/18/17 12:15) Ed Urine Pregnancytest Poc (05/18/17 12:13) Labs Laboratory Tests Test 05/18/17 12:20 White Blood Count 7.3 TH/MM3 Red Blood Count 4.16 MIL/MM3 Hemoglobin 10.8 GM/DL Hematocrit 33.8 % Mean Corpuscular Volume 81.4 FL Mean Corpuscular Hemoglobin 26.1 PG Mean Corpuscular Hemoglobin 32.0 % Concent Red Cell Distribution Width 14.3 % Platelet Count 355 TH/MM3 Mean Platelet Volume 6.7 FL Neutrophils (%) (Auto) 61.0 % Lymphocytes (%) (Auto) 25.9 % Monocytes (%) (Auto) 8.5 % Eosinophils (%) (Auto) 4.0 % Basophils (%) (Auto) 0.6 % Neutrophils # (Auto) 4.4 TH/MM3 Lymphocytes # (Auto) 1.9 TH/MM3 Monocytes # (Auto) 0.6 TH/MM3 Eosinophils # (Auto) 0.3 TH/MM3 Basophils # (Auto) 0.0 TH/MM3 CBC Comment DIFF FINAL Differential Comment Urine Color LIGHT-YELLOW Urine Turbidity CLEAR Urine pH 6.0 Urine Specific Sabina 1.012 Urine Protein 300 mg/dL Urine Glucose (UA) NEG mg/dL Urine Ketones NEG mg/dL Urine Occult Blood TRACE Urine Nitrite NEG Urine Bilirubin NEG Urine Urobilinogen LESS THAN 2.0 MG/DL Urine Leukocyte Esterase NEG Urine RBC 1 /hpf Urine WBC 1 /hpf Urine Squamous Epithelial 1 /hpf Cells Urine Mucus FEW /lpf Microscopic Urinalysis Comment CULT NOT INDICATED Sodium Level 141 MEQ/L Potassium Level 3.6 MEQ/L Chloride Level 108 MEQ/L Carbon Dioxide Level 24.0 MEQ/L Anion Gap 9 MEQ/L Blood Urea Nitrogen 24 MG/DL Creatinine 1.37 MG/DL Estimat Glomerular Filtration 48 ML/MIN Rate Random Glucose 93 MG/DL Calcium Level 8.9 MG/DL Total Bilirubin 0.3 MG/DL Aspartate Amino Transf 26 U/L (AST/SGOT) Alanine Aminotransferase 44 U/L (ALT/SGPT) Alkaline Phosphatase 89 U/L Total Protein 7.0 GM/DL Albumin 2.8 GM/DL Lipase 250 U/L [facility] Medical Decision Making Medical Screen Exam Complete: Yes Emergency Medical Condition: Yes Medical Record Reviewed: Yes Differential Diagnosis Hemorrhoids versus UTI versus electrolyte abnormality versus lower GI bleed Narrative Course 22-year-old female presents to the emergency department for evaluation of blood in her stool for 15 days, worse over the past 2-3 days with lower abdominal pain , especially when going to the bathroom. Patient denies any other symptoms or complaints. Hemoccult is negative. CBC, CMP, lipase, UA, urine test are ordered and pending. Patient is given normal saline 1 L IV bolus. CBC shows hemoglobin 10.8, hematocrit 33.8. CMP shows BUN 24, creatinine 1.37. This is improved from previous labs. Lipase is 250. UA is negative for acute infection. UPT is negative. Lab work and physical are reassuring. I instructed the patient to have a high-fiber diet, drink plenty of water. She is to follow up with her primary care physician. She is instructed to return immediately for any worsening symptoms. My attending physician, Dr. Barrow, is aware of all findings and agrees with plan and disposition. The patient was discharged in stable condition with instructions, including return instructions and follow up instructions. HemaPrompt Point of Care Internal Pos. & Neg. Controls: Passed Fecal Specimen Occult Blood: Negative Diagnosis Primary Impression: Hematochezia Referrals: Primary Care Physician 2 days Patient Instructions: General Instructions, Rectal Bleeding (ED) Additional Instructions: High-fiber diet. Follow-up with your primary care physician. Return to the emergency department for any acute worsening of symptoms. Med/Other Pt SpecificInfo: No Change to Meds Scripts No Active Prescriptions or Reported Meds Disposition: 01 DISCHARGE HOME Condition: Stable Diamond Wilson May 18, 2017 12:17
[2017-05-18 12:25] VITALS: O2SAT 0; O2SAT 98
[2017-05-18 12:29] LABS: AUTOMATED NEUTROPHIL # 4.4 TH/MM3 (1.8-7.7); BASOPHIL % 0.6 % (0.0-2.0); EOSINOPHIL # 0.3 TH/MM3 (0-0.4); HEMATOCRIT 33.8 % (35.0-46.0); HEMO FLAGS DIFF FINAL; LYMPH % 25.9 % (9.0-44.0); LYMPHOCYTE # 1.9 TH/MM3 (1.0-4.8); MEAN CELL VOLUME 81.4 FL (80.0-100.0); MEAN CORPUSCULAR HEMOGLOBIN 26.1 PG (27.0-34.0); MONO % 8.5 % (0.0-8.0); PLATELET COUNT 355 TH/MM3 (150-450); RED BLOOD COUNT 4.16 MIL/MM3 (4.00-5.30); RED CELL DISTRIBUTION WIDTH 14.3 % (11.6-17.2); WHITE BLOOD COUNT 7.3 TH/MM3 (4.0-11.0)
[2017-05-18 12:32] LABS: GLUCOSE,URINE NEG (NEG); KETONE, URINE NEG (NEG); URINE COLOR LIGHT-YELLOW (YELLW/STRAW)
[2017-05-18 12:33] LABS: BLOOD, URINE TRACE (NEG); COMMENT (UR) CULT NOT INDICATED; CULTURE IF INDICATED CULT NOT INDICATED; MUCUS URINE FEW /lpf (OCC); NITRITE,URINE NEG (NEG); SQUAMOUS EPITHELIAL CELL URINE 1 /hpf (0-5)
[2017-05-18 12:45] LABS: ALT (GPT) 44 U/L (10-53); ANION GAP 9 MEQ/L (5-15); AST (GOT) 26 U/L (15-37); BLOOD UREA NITROGEN 24 MG/DL (7-18); CHLORIDE 108 MEQ/L (98-107); GLOMERULAR FILTRATION RATE 48 ML/MIN (>89); POTASSIUM 3.6 MEQ/L (3.5-5.1); SODIUM (NA) 141 MEQ/L (136-145)
[2017-05-18 12:48] LABS: ALKALINE PHOSPHATASE 89 U/L (45-117); TOTAL BILIRUBIN ADULT 0.3 MG/DL (0.2-1.0)
== END 2017-05-18 13:32 | disposition home or self-care (01) ==
LOC: NEPE 11:06
DX: K92.1 Melena (principal)
CPT/HCPCS: 80053; 81001; 83690; 84703; 85025; 96360; 99284; J7030

== ENCOUNTER 2017-10-20 11:14 | Emergency (ER) | payer SELFPAY ==
--- NOTE | 2017-10-20 12:07 | PD ---
HPI Chief Complaint Hip, low back and heaviness Date Seen: Oct 20, 2017 Time Seen: 11:57 Travel History International Travel<30 Days: No Contact w/Intl Traveler<30Days: No Known Affected Area: No History of Present Illness HPI 22-year-old 2 para 1 at 24+ weeks gestation with an EDC of February 03 with complaint of hip, low back discomfort and abdominal heaviness. She denies any bleeding, leakage of fluid, vaginal discharge. No dysuria hematuria or frequency. History Past Medical History Medical History: Denies Significant Hx Past Surgical History Surgical History: No Previous Surgery Family History Family History: Negative Social History Alcohol Use: No Tobacco Use: No Substance Abuse: No Allergies-Medications (Allergen,Severity, Reaction): Coded Allergies: No Known Allergies (Unverified , 02/10/17) Home Meds No Active Prescriptions or Reported Meds Review of Systems Except as stated in HPI: all other systems reviewed are Neg Physical Exam Narrative GENERAL: Well-nourished, well-developed patient. SKIN: Warm and dry. HEAD: Normocephalic and atraumatic. EYES: No scleral icterus. No injection or drainage. ENT: No nasal drainage noted. Mucous membranes pink. Airway patent. NECK: Supple, trachea midline. No JVD. CARDIOVASCULAR: Regular rate and rhythm without murmurs, gallops, or rubs. RESPIRATORY: Breath sounds equal bilaterally. No accessory muscle use. ABDOMEN/GI: Abdomen soft, non-tender, bowel sounds present, no rebound, no guarding Gravid to [-] weeks size Fundal Height: [-24] GENITOURINARY: External Genitalia: intact and normal in appearance BUS glands: [-Negative] Cervix: [-] Dilatation: [Closed-] Effacement: [Long-] Station: [-2-] Presentation: [Vertex-] Membranes: [intact] Uterine Contractions: [None-] FHT's: Category: [1-] Baseline: [-] Reactive: [-] Variability: [-] Decels: [-] EXTREMITIES: No cyanosis or edema. BACK: Nontender without obvious deformity. No CVA tenderness. NEUROLOGICAL: Awake and alert. Motor and sensory grossly within normal limits. Five out of 5 muscle strength in all muscle groups. Normal speech. Data Data Vital Signs Reviewed: Yes MDM Medical Record Reviewed: Yes Narrative Course / MDM Assessment: 24 week intrauterine with associated discomfort Plan: The patient was educated regarding these symptoms and instructed to continue follow up for her visits. Diagnosis Diagnosis: Primary Impression: 24 weeks gestation of Additional Impression: discomfort of Disposition: 01 DISCHARGE HOME Condition: Good Scripts No Active Prescriptions or Reported Meds Gerry Hui MD Oct 20, 2017 12:07
== END 2017-10-20 12:24 | disposition home or self-care (01) ==
LOC: HOBED 11:14
DX: O26.892 Other specified pregnancy related conditions, second trimester (principal); M25.559 Pain in unspecified hip; M54.5 Low back pain; R10.9 Unspecified abdominal pain; Z3A.24 24 weeks gestation of pregnancy
CPT/HCPCS: 99284

== ENCOUNTER 2017-12-31 13:17 | Emergency (ER) | payer OTHER ==
--- NOTE | 2017-12-31 14:31 | PD ---
HPI Chief Complaint Decreased movement, right sided facial pain and jaw pain Date Seen: Dec 31, 2017 Time Seen: 14:10 Travel History International Travel<30 Days: No Contact w/Intl Traveler<30Days: No Known Affected Area: No History of Present Illness HPI Patient 22-year-old GE P1 at 35 weeks sees Sofiya Seymour for care presents complaining of decreased movement today. No bleeding or leakage of fluid the heart rate tracing is reactive and no contractions Complaint is one of right sided facial pain and jaw pain hurts the point she can 't chew or bite and anything on that side. Weeks Gestation: 35 Para: 1 : 2 History Obstetric History Obstetric History 1 vaginal delivery Social History Alcohol Use: No Tobacco Use: No Substance Abuse: No Allergies-Medications (Allergen,Severity, Reaction): Coded Allergies: No Known Allergies (Unverified , 02/10/17) Home Meds No Active Prescriptions or Reported Meds Review of Systems General / Constitutional: No: Fever, Weight Gain, Chills, Other Eyes: No: Diploplia, Blurred Vision, Visual changes, Pain, Photophobia HENT: No: Headaches, Vertigo, Lightheadedness Cardiovascular: No: Irregular Rhythm, Chest Pain or Discomfort, Palpitations, Tachycardia, Syncope, Varicosities, Edema, Cyanosis Respiratory: No: Cough, Short of Breath, Other Gastrointestinal: No: Nausea, Vomiting, Diarrhea Genitourinary: No: Decreased Urinary Output, Oliguria Musculoskeletal: No: Limited ROM, Weakness, Cramping, Edema, Pain Skin: No Rash, No Itching, No Dryness, No Lumps, No Change in Pigmentation, No Change in Nails, No Alopecia, No Lesions Neurologic: No: Weakness, Dizziness, Syncope, Focal Abnormalities, Coordination Problem, Headache, Slurred Speech, Seizures Psychiatric: No: Depression, Suicidal Ideations, Homicidal Ideation Endocrine: No: Heat Intolerance, Cold Intolerance, Polydipsia, Polyuria, Other Physical Exam Narrative GENERAL: Well-nourished, well-developed patient. SKIN: Warm and dry. HEAD: Normocephalic and atraumatic. EYES: No scleral icterus. No injection or drainage. ENT: No nasal drainage noted. Mucous membranes pink. Airway patent. NECK: Supple, trachea midline. No JVD. CARDIOVASCULAR: Regular rate and rhythm without murmurs, gallops, or rubs. RESPIRATORY: Breath sounds equal bilaterally. No accessory muscle use. BREASTS: Bilateral exam showed no masses , no retractions, no nipple discharge. ABDOMEN/GI: Abdomen soft, non-tender, bowel sounds present, no rebound, no guarding Gravid to [-35] weeks size Fundal Height: [35-] GENITOURINARY: External Genitalia: intact and normal in appearance BUS glands: [-] Cervix: [-post] Dilatation: [-1] Effacement: [thick-] Station: [-3] Presentation: [vtx-] Membranes: [intact ] Uterine Contractions: [-none] FHT's: Category: [1-] Baseline: [-133] Reactive: [r] Variability: [mod-] Decels: [-none] EXTREMITIES: No cyanosis or edema. BACK: Nontender without obvious deformity. No CVA tenderness. NEUROLOGICAL: Awake and alert. Motor and sensory grossly within normal limits. Five out of 5 muscle strength in all muscle groups. Normal speech. MDM Interpretation(s) 22-year-old at 35 weeks who presents planning of decreased movement mainly complains of right-sided facial pain for several days. She's never had a problem before. A year ago had a wisdom tooth pulled on that side but otherwise no other problems until now this pain is getting worse and she is swelling in her jaw can't bite down on anything. She denies fever chills nausea vomiting. Notice some decreased movement today. heart tones are reactive here on OB ED. No contractions seen. Having minimal amount of discomfort in the lower abdomen and does check cervix was fingertip thick and posterior Plan Plan was to discharge from obstetric standpoint since she is reactive strip she was offered to go down to the emergency room and check her Enrike to of. That she may have a parotid gland inflammation or obstruction I really don't know but the patient did not want to go to the ER today she's going to try to go to the dentist tomorrow Diagnosis Diagnosis: Primary Impression: Decreased movement affecting management of in third trimester Additional Impression: Right facial pain Disposition: 01 DISCHARGE HOME Condition: Stable Scripts No Active Prescriptions or Reported Meds Dylan Lynch II, MD Dec 31, 2017 14:31
== END 2017-12-31 14:58 | disposition home or self-care (01) ==
LOC: HOBED 13:17
DX: O36.8130 Decreased fetal movements, third trimester, not applicable or unspecified (principal); R51 Headache; R68.84 Jaw pain; Z3A.35 35 weeks gestation of pregnancy
CPT/HCPCS: 59025

== ENCOUNTER 2018-01-16 19:48 | Emergency (ER) | payer OTHER ==
[2018-01-16] MEDS ORDERED: ACETAMINOPHEN 500 MG CPLT PO ONE (20:15)
--- NOTE | 2018-01-16 21:20 | PD ---
HPI Chief Complaint OLVERA Date Seen: Jan 16, 2018 Time Seen: 21:13 Travel History International Travel<30 Days: No Contact w/Intl Traveler<30Days: No Known Affected Area: No History of Present Illness HPI pt. is a 22 y/o @ 37 2/7 weeks present as a referral from Sofiya Seymour 12/21 OLVERA. pt. states for the last 2 days she has had OLVERA. pt. states call [facility] and was recommened to come to ED. pt. states that OLVERA is in front and on side of head and feels like a cramp. has not taken any meds to try to alleviate. pt. states been dull and achy for the last day. denies cp/sob, n/v, visual changes/ scotomata. Weeks Gestation: 37 Para: 1 : 2 History Past Medical History Medical History: Denies Significant Hx Obstetric History Obstetric History , s/p x1 Past Surgical History Surgical History: No Previous Surgery Family History Family History: Negative Social History Alcohol Use: No Tobacco Use: No Substance Abuse: No Allergies-Medications (Allergen,Severity, Reaction): Coded Allergies: No Known Allergies (Unverified Allergy, Unknown, 01/16/18) Home Meds No Active Prescriptions or Reported Meds Review of Systems Except as stated in HPI: all other systems reviewed are Neg Physical Exam Narrative GENERAL: Well-nourished, well-developed patient. SKIN: Warm and dry. HEAD: Normocephalic and atraumatic. EYES: No scleral icterus. No injection or drainage. ENT: No nasal drainage noted. Mucous membranes pink. Airway patent. NECK: Supple, trachea midline. No JVD. CARDIOVASCULAR: Regular rate and rhythm without murmurs, gallops, or rubs. RESPIRATORY: Breath sounds equal bilaterally. No accessory muscle use. ABDOMEN/GI: Abdomen soft, non-tender, bowel sounds present, no rebound, no guarding Gravid FHT's: Category: 1 Reactive: + Variability: mod Decels: none EXTREMITIES: No cyanosis or edema. BACK: Nontender without obvious deformity. No CVA tenderness. NEUROLOGICAL: Awake and alert. Motor and sensory grossly within normal limits. Five out of 5 muscle strength in all muscle groups. Normal speech. Data Data Vital Signs Reviewed: Yes Orders Orders Acetaminophen (Tylenol) (2/28/18 20:15) Protein Creat Ratio, Random Ur (01/16/18 20:16) Labs Laboratory Tests Test 01/16/18 20:05 Urine Random Creatinine 61 Urine Random Total Protein 419 Urine Protein/Creatinine Ratio 6.87 MDM Medical Record Reviewed: Yes Plan pt is @ 37 3/7 weeks w/ improving OLVERA s/p tylenol. pt. bp wnl. ppt. have urine dip and ua w/ increasde protein. will send 24 our urine for protein. condition d/w pt. thru electrical and instrumentation mechanic. pt. given precautions for return. all ? answered. Diagnosis Diagnosis: Primary Impression: Proteinuria affecting in third trimester Disposition: DISCHARGE HOME Scripts No Active Prescriptions or Reported Meds Patient Instructions: General Instructions Departure Forms: Tests/Procedures Bobo Resendiz Jr., MD Jan 16, 2018 21:20
== END 2018-01-16 21:31 | disposition home or self-care (01) ==
LOC: EDBD → HOBED 19:48
DX: O12.13 Gestational proteinuria, third trimester (principal); O26.893 Other specified pregnancy related conditions, third trimester; R51 Headache; Z3A.37 37 weeks gestation of pregnancy
CPT/HCPCS: 82570; 84156; 99283

== ENCOUNTER → 2018-01-18 | Outpatient (CLI) | payer OTHER | LOC: EDBD → CLAB 08:40 | PROVIDERS: ATTEND Pediatrics | DX: O12.10 Gestational proteinuria, unspecified trimester (principal) | CPT/HCPCS: 84157 ==

== ENCOUNTER 2018-01-22 21:35 | Emergency (ER) | payer OTHER ==
--- NOTE | 2018-01-22 23:11 | PD ---
HPI Chief Complaint ctxs Date Seen: Jan 22, 2018 Time Seen: 23:04 Travel History International Travel<30 Days: No Contact w/Intl Traveler<30Days: No Known Affected Area: No History of Present Illness HPI pt. is a @ 38 2/7 weeks israeli speaking female present w/ c/o ctxs. vai [employer], pt. states chuy having ctxs earlier in the evening that have increased in intensity and freq since. +FM, no lof/vb. while here, pt. monitored and cervix initially closed and no change when checked in 2 hours. Weeks Gestation: 38 Para: 1 : 2 History Past Medical History Medical History: Denies Significant Hx Past Surgical History Surgical History: No Previous Surgery Family History Family History: Negative Social History Alcohol Use: No Tobacco Use: No Substance Abuse: No Allergies-Medications (Allergen,Severity, Reaction): Coded Allergies: No Known Allergies (Unverified Allergy, Unknown, 01/16/18) Home Meds No Active Prescriptions or Reported Meds Review of Systems Except as stated in HPI: all other systems reviewed are Neg Physical Exam Narrative GENERAL: Well-nourished, well-developed patient. SKIN: Warm and dry. HEAD: Normocephalic and atraumatic. EYES: No scleral icterus. No injection or drainage. ENT: No nasal drainage noted. Mucous membranes pink. Airway patent. NECK: Supple, trachea midline. No JVD. CARDIOVASCULAR: Regular rate and rhythm without murmurs, gallops, or rubs. RESPIRATORY: Breath sounds equal bilaterally. No accessory muscle use. ABDOMEN/GI: Abdomen soft, non-tender, bowel sounds present, no rebound, no guarding Gravid GENITOURINARY: External Genitalia: intact and normal in appearance Dilatation: closed Effacement: long Station:high Presentation: cephalic Membranes: intact Uterine Contractions: q2-5 mins FHT's: Category: 1 Reactive:+ Variability: mod Decels:none EXTREMITIES: No cyanosis or edema. BACK: Nontender without obvious deformity. No CVA tenderness. NEUROLOGICAL: Awake and alert. Motor and sensory grossly within normal limits. Five out of 5 muscle strength in all muscle groups. Normal speech. Data Data Vital Signs Reviewed: Yes [facility] Medical Record Reviewed: Yes Plan pt. to be d/c to home. pt. not in active labor. condition d/w pt. all ? answered. pt. given precautions for return. pt. to f/u as sched. Diagnosis Diagnosis: Primary Impression: Premature uterine contractions in third trimester, antepartum Additional Impression: 38 weeks gestation of Disposition: 01 DISCHARGE HOME Condition: Stable Scripts No Active Prescriptions or Reported Meds Patient Instructions: General Instructions, Having Your Baby: The Labor Process (GEN), Movement (ED), Abdominal Pain in (ED) Departure Forms: Tests/Procedures Bobo Resendiz Jr., MD Jan 22, 2018 23:11
== END 2018-01-22 23:39 | disposition home or self-care (01) ==
LOC: EDBD → HOBED 21:35
DX: O62.8 Other abnormalities of forces of labor (principal); Z3A.38 38 weeks gestation of pregnancy
CPT/HCPCS: 59025

== ENCOUNTER 2018-01-30 19:21 | Inpatient (IN) | payer MEDICAID, OTHER ==
[~2018-01-30] VITALS: Ht 165.1 cm; Wt 79.8 kg
--- NOTE | 2018-01-30 20:27 | PD ---
HPI Chief Complaint Decreased movement Date Seen: Jan 30, 2018 Time Seen: 20:10 Travel History International Travel<30 Days: No Contact w/Intl Traveler<30Days: No Known Affected Area: No History of Present Illness HPI Patient is a 23-year-old 39-40 weeks goes to [facility] and presents with decreased movement since 8 oclock this morning. Denies bleeding, leakage, pain, her NST is reactive here on OB ED Weeks Gestation: 39 Para: 1 : 2 History Obstetric History Obstetric History 1 vaginal delivery Social History Alcohol Use: No Tobacco Use: No Substance Abuse: No Allergies-Medications (Allergen,Severity, Reaction): Coded Allergies: No Known Allergies (Unverified Allergy, Unknown, 01/16/18) Home Meds No Active Prescriptions or Reported Meds Review of Systems General / Constitutional: No: Fever, Weight Gain, Chills, Other Eyes: No: Diploplia, Blurred Vision, Visual changes, Pain, Photophobia HENT: No: Headaches, Vertigo, Lightheadedness Cardiovascular: No: Irregular Rhythm, Chest Pain or Discomfort, Palpitations, Tachycardia, Syncope, Varicosities, Edema, Cyanosis Respiratory: No: Cough, Short of Breath, Other Gastrointestinal: No: Nausea, Vomiting, Diarrhea Genitourinary: No: Decreased Urinary Output, Oliguria Musculoskeletal: No: Limited ROM, Weakness, Cramping, Edema, Pain Skin: No Rash, No Itching, No Dryness, No Lumps, No Change in Pigmentation, No Change in Nails, No Alopecia, No Lesions Neurologic: No: Weakness, Dizziness, Syncope, Focal Abnormalities, Coordination Problem, Headache, Slurred Speech, Seizures Psychiatric: No: Depression, Suicidal Ideations, Homicidal Ideation Endocrine: No: Heat Intolerance, Cold Intolerance, Polydipsia, Polyuria, Other Physical Exam Narrative GENERAL: Well-nourished, well-developed patient. SKIN: Warm and dry. HEAD: Normocephalic and atraumatic. EYES: No scleral icterus. No injection or drainage. ENT: No nasal drainage noted. Mucous membranes pink. Airway patent. NECK: Supple, trachea midline. No JVD. CARDIOVASCULAR: Regular rate and rhythm without murmurs, gallops, or rubs. RESPIRATORY: Breath sounds equal bilaterally. No accessory muscle use. BREASTS: Bilateral exam showed no masses , no retractions, no nipple discharge. ABDOMEN/GI: Abdomen soft, non-tender, bowel sounds present, no rebound, no guarding Gravid to [-39] weeks size Fundal Height: [-39] GENITOURINARY: Membranes: [intact ] Uterine Contractions: [none-] FHT's: Category: [-1] Baseline: [133-] Reactive: [-R] Variability: [mod-] Decels: [-none] EXTREMITIES: No cyanosis or edema. BACK: Nontender without obvious deformity. No CVA tenderness. NEUROLOGICAL: Awake and alert. Motor and sensory grossly within normal limits. Five out of 5 muscle strength in all muscle groups. Normal speech. Data Data Orders Orders Vital Signs (Adult) .ON ADMISSION (01/30/18 20:05) ^ Labor Status (01/30/18 20:05) ^ Non Stress Test (01/30/18 20:05) Us Ob Bpp Wo Nst (01/30/18 20:05) Labs BPP -8 of 8 with reactive NST --10 of 10 MDM Interpretation(s) Patient is a 23-year-old at 39-1/2 weeks. On OB ED she has a reactive NST, still complains of not feeling the baby move , BPP -8 of 8 with NST 10 of 10 Plan Plan bio physical profile-- 8 of 8 We will discharge home to be followed up by her OB provider Diagnosis Diagnosis: Primary Impression: Decreased movement affecting management of mother, antepartum Additional Impression: 39 weeks gestation of Disposition: 01 DISCHARGE HOME Condition: Stable Scripts No Active Prescriptions or Reported Meds Dylan Lynch II, MD Jan 30, 2018 20:27
[2018-01-31] VITALS (25 sets, daily range): BP systolic 111–129; BP diastolic 55–75; PULSE 92–113; RESP 16–18; TEMP 98–99.1; O2SAT 100
[2018-01-31] MEDS: LACTATED RINGER'S 1000 ML INJ 1,000 ML IV SCH (21:05)
--- NOTE | 2018-01-31 21:13 | HHI.HP ---
HPI Chief Complaint Sent from [facility] for elevated proteinuria on 24-hour urine Travel History International Travel<30 Days: No Contact w/Intl Traveler<30Days: No Known Affected Area: No History of Present Illness HPI 23-year-old 001, IUP at 39.4 care complicated by close spacing The patient presents referred from [facility] office for follow-up of elevated 24-hour urine. Of note the patient was seen here in the OB ED on with a elevated protein creatinine ratio. She was discharged home with a 24- hour urine with results of 7,413 on 01/18/18. Today she reports that she has had a headache all day, there are no aggravating or alleviating factors and no attempted treatments. She denies any right upper quadrant or epigastric pain, she denies any visual changes. She denies any leaking of fluid or vaginal bleeding. She denies any painful contractions or cramping. She reports good movement. Weeks Gestation: 39 Para: 1 : 2 Miscarriage: 0 : 0 History Past Medical History Medical History: Denies Significant Hx Obstetric History Obstetric History 001, 1 Past Surgical History Surgical History: No Previous Surgery Family History Family History: Negative Social History Alcohol Use: No Tobacco Use: No Substance Abuse: No Allergies-Medications (Allergen,Severity, Reaction): Coded Allergies: No Known Allergies (Unverified Allergy, Unknown, 01/31/18) Home Meds Reported Medications Folic Acid (Folic Acid) 0.4 Mg Tab, 400 MCG PO DAILY for Nutritional Supplement , TAB 0 Refills 01/31/18 Vit-Iron Carbonyl ( Plus Iron 29-1 mg) 29 Mg Iron-1 Mg Tab, 1 TAB PO DAILY for Nutritional Supplement, #30 TAB 0 Refills 01/31/18 Review of Systems Except as stated in HPI: all other systems reviewed are Neg Physical Exam Narrative GENERAL: Well-nourished, well-developed patient. SKIN: Warm and dry. HEAD: Normocephalic and atraumatic. EYES: No scleral icterus. No injection or drainage. ENT: No nasal drainage noted. Mucous membranes pink. Airway patent. NECK: Supple, trachea midline. No JVD. CARDIOVASCULAR: Regular rate and rhythm without murmurs, gallops, or rubs. RESPIRATORY: Breath sounds equal bilaterally. No accessory muscle use. BREASTS: Deferred ABDOMEN/GI: Abdomen soft, non-tender, bowel sounds present, no rebound, no guarding Gravid GENITOURINARY: External Genitalia: intact and normal in appearance. Normal BUS. No cervical or vaginal masses noted. Physiologic discharge. Grossly normal rugate. SVE FHT's: heart tones in the 140s to 150s with moderate long-term variability , good accelerations, no decelerations noted. This is a category 1 heart rate tracing and a reactive NST EXTREMITIES: No cyanosis or edema. BACK: Nontender without obvious deformity. No CVA tenderness. NEUROLOGICAL: Awake and alert. Motor and sensory grossly within normal limits. Five out of 5 muscle strength in all muscle groups. Normal speech. Muscle skeletal: Grossly normal range of motion, gait, muscle strength Psychiatric: Grossly normal memory and affect Caprini VTE Risk Assessment Caprini VTE Risk Assessment: No/Low Risk (score <= 1) Caprini Risk Assessment Model Point Value = 1 Point Value = 2 Point Value = 3 Point Value = 5 Age 41-60 Minor surgery BMI > 25 kg/m2 Swollen legs Varicose veins or History of unexplained or recurrent spontaneous Oral contraceptives or hormone replacement Sepsis (< 1 month) Serious lung disease, including pneumonia (< 1 month) Abnormal pulmonary function Acute myocardial infarction Congestive heart failure (< 1 month) History of inflammatory bowel disease Medical patient at bed rest Age 61-74 Arthroscopic surgery Major open surgery (> 45 min) Laparoscopic surgery (> 45 min) Malignancy Confined to bed (> 72 hours) Immobilizing plaster cast Central venous access Age >= 75 History of VTE Family history of VTE Factor V Leiden Prothrombin [id number] Lupus anticoagulant Anticardiolipin antibodies Elevated serum homocysteine Heparin-induced thrombocytopenia Other congenital or acquired thrombophilia Stroke (< 1 month) Elective arthroplasty Hip, pelvis, or leg fracture Acute spinal cord injury (< 1 month) Prophylaxis Regimen Total Risk Factor Score Risk Level Prophylaxis Regimen 0-1 Low Early ambulation 2 Moderate Order ONE of the following: *Sequential Compression Device (SCD) *Heparin 5000 units SQ BID 3-4 Higher Order ONE of the following medications: *Heparin 5000 units SQ TID *Enoxaparin/Lovenox 40 mg SQ daily (WT < 150 kg, CrCl > 30 mL/min) *Enoxaparin/Lovenox 30 mg SQ daily (WT < 150 kg, CrCl > 10-29 mL/min) *Enoxaparin/Lovenox 30 mg SQ BID (WT < 150 kg, CrCl > 30 mL/min) AND/OR *Sequential Compression Device (SCD) 5 or more Highest Order ONE of the following medications: *Heparin 5000 units SQ TID (Preferred with Epidurals) *Enoxaparin/Lovenox 40 mg SQ daily (WT < 150 kg, CrCl > 30 mL/min) *Enoxaparin/Lovenox 30 mg SQ daily (WT < 150 kg, CrCl > 10-29 mL/min) *Enoxaparin/Lovenox 30 mg SQ BID (WT < 150 kg, CrCl > 30 mL/min) AND *Sequential Compression Device (SCD) Assessment/Plan Assessment and Plan Assessment/plan: 1. IUP at 39.4 2. Possible preeclampsia: The patient has Significant proteinuria with reportedly elevated blood pressures during , although her blood pressures are stable and within normal limits today. We'll admit for induction of labor. We'll draw preeclampsia labs. Discussed in brief methods of induction. Discussed in brief risks benefits and alternatives to discussion. Discussed the risks if delivery is indicated including but not limited to pain, infection, bleeding, injury to other organs like the bladder/bowel/ nerves/vessels, injury to the baby, need for blood transfusion, need for hysterectomy, need for repeat operation, wound infection/breakdown and other possible complications. The patient is in agreement with proceeding with induction of labor and is willing for delivery if indicated. 3. well-being: Reassuring testing with reactive NST and category 1 heart rate tracing. FHR is reassuring and appropriate for gestational age, will continue monitoring 4. Hgb A1c 5.4 5. GBS negative 6. Close spacing Rachel Antunez MD Jan 31, 2018 21:13
[2018-01-31] MEDS ORDERED: LACTATED RINGER'S 1000 ML INJ 1,000 ML IV PRN (21:16)
[2018-01-31] MEDS ORDERED: MAGNESIUM SULFATE 40 GM PREMIX 1,000 ML IV SCH (21:21)
[2018-01-31] MEDS ORDERED: LACTATED RINGER'S 1000 ML INJ 1,000 ML IV SCH (21:21)
[2018-01-31] MEDS ORDERED: SODIUM CHLOR 0.9% 1000 ML INJ 1,000 ML OTHER PRN (21:22)
[2018-01-31 21:29] LABS: AUTOMATED NEUTROPHIL # 8.4 TH/MM3 (1.8-7.7); BASOPHIL % 0.4 % (0.0-2.0); EOSINOPHIL # 0.1 TH/MM3 (0-0.4); EOSINOPHIL % 0.9 % (0.0-4.0); HEMATOCRIT 31.8 % (35.0-46.0); HEMOGLOBIN 10.6 GM/DL (11.6-15.3); LYMPH % 5.6 % (9.0-44.0); LYMPHOCYTE # 0.5 TH/MM3 (1.0-4.8); MEAN CELL VOLUME 84.3 FL (80.0-100.0); MEAN CORPUSCULAR HGB CONC 33.2 % (32.0-36.0); MEAN PLATELET VOLUME 6.8 FL (7.0-11.0); MONO % 4.3 % (0.0-8.0); MONOCYTE # 0.4 TH/MM3 (0-0.9); NEUT % 88.8 % (16.0-70.0); PLATELET COUNT 409 TH/MM3 (150-450); RED BLOOD COUNT 3.77 MIL/MM3 (4.00-5.30); RED CELL DISTRIBUTION WIDTH 15.7 % (11.6-17.2); WHITE BLOOD COUNT 9.5 TH/MM3 (4.0-11.0)
[2018-01-31] MEDS ORDERED: LIDOCAINE HCL 1% 50 ML VIAL I-DERMAL PRN (21:30)
[2018-01-31] MEDS ORDERED: SODIUM CHLORIDE 0.9% FLUSH 10 ML FLUSH IV FLUSH PRN ×2 (21:30)
[2018-01-31] MEDS ORDERED: CITRIC ACID-SODIUM CITRATE LIQ 30 ML UDC PO SCH (21:30)
[2018-01-31] MEDS ORDERED: MISOPROSTOL 100 MCG TAB VAGINAL ONE (21:30)
[2018-01-31] MEDS ORDERED: SODIUM CHLORID 0.9% 500 ML INJ 500 ML IV PRN (21:30)
[2018-01-31] MEDS ORDERED: SODIUM CHLORIDE 0.9% FLUSH 10 ML FLUSH IV FLUSH SCH (21:30)
[2018-01-31] MEDS ORDERED: ONDANSETRON HCL 4 MG/2 ML VIAL IV PUSH PRN (21:30)
[2018-01-31] MEDS ORDERED: OXYTOCIN 30 UNITS-500ML PREMIX 500 ML IV ONE (21:30)
[2018-01-31] MEDS ORDERED: MINERAL OIL 10 ML VIAL TOPICAL PRN (21:30)
[2018-01-31] MEDS ORDERED: MAGNESIUM SULFATE 4 GM PREMIX 100 ML IV ONE (21:30)
[2018-01-31] MEDS ORDERED: CALCIUM GLUCONATE 10% 1 GM/10 ML VIAL IV PUSH PRN (21:30)
[2018-01-31] MEDS ORDERED: LIDOCAINE HCL 1% 50 ML VIAL INFIL PRN (21:30)
[2018-01-31] MEDS ORDERED: SODIUM CHLOR 0.9% 1000 ML INJ 1,000 ML IV PRN (21:36)
[2018-01-31 21:46] LABS: AMORPHOUS SEDIMENT, URINE RARE; BACTERIA, URINE RARE /hpf; BILIRUBIN, URINE NEG (NEG); BLOOD, URINE SMALL (NEG); GLUCOSE,URINE NEG (NEG); KETONE, URINE NEG (NEG); NITRITE,URINE NEG (NEG); SQUAMOUS EPITHELIAL CELL URINE 3 /hpf (0-5); URINE COLOR LIGHT-YELLOW (YELLW/STRAW); URINE LEUKOCYTE ESTERASE SMALL (NEG)
[2018-01-31] MEDS ORDERED: PREN29TA PO (22:04)
[2018-01-31] MEDS ORDERED: FOLI400T PO (22:04)
[2018-01-31 22:05] LABS: ALT (GPT) 14 U/L (10-53); AST (GOT) 15 U/L (15-37); BICARBONATE 20.8 MEQ/L (21.0-32.0); BLOOD UREA NITROGEN 13 MG/DL (7-18); CALCIUM 8.7 MG/DL (8.5-10.1); CHLORIDE 109 MEQ/L (98-107); CREATININE 1.75 MG/DL (0.50-1.00); GLOMERULAR FILTRATION RATE 36 ML/MIN (>89); GLUCOSE,RANDOM 120 MG/DL (74-106); SODIUM (NA) 142 MEQ/L (136-145)
[2018-01-31 22:07] LABS: ALKALINE PHOSPHATASE 284 U/L (45-117); TOTAL BILIRUBIN ADULT 0.1 MG/DL (0.2-1.0); TOTAL PROTEIN 5.8 GM/DL (6.4-8.2)
[2018-01-31] MEDS: ACETAMINOPHEN 325 MG TAB PO PRN (23:15)
[2018-02-01] VITALS (197 sets, daily range): BP systolic 81–148; BP diastolic 33–80; PULSE 82–139; RESP 16–18; TEMP 97.6–99.3; O2SAT 90–100
[2018-02-01] MEDS ORDERED: MISOPROSTOL 100 MCG TAB VAGINAL PRN (01:30)
[2018-02-01] MEDS: LACTATED RINGER'S 1000 ML INJ 1,000 ML IV SCH (04:38)
[2018-02-01] MEDS: ACETAMINOPHEN 325 MG TAB PO PRN ×2 (07:33→17:48)
[2018-02-01] MEDS ORDERED: fentaNYL 2MCG-BUPIV 0.125% INJ 100 ML ONE (08:06)
[2018-02-01] MEDS ORDERED: ePHEDrine/NS 25 MG/5 ML SYRINGE ONE ×2 (08:07→09:08)
[2018-02-01] MEDS ORDERED: OXYTOCIN 30 UNITS-500ML PREMIX 500 ML IV PRN (09:00)
[2018-02-01] MEDS ORDERED: SODIUM CHLORIDE 0.9% FLUSH 10 ML FLUSH IV FLUSH SCH ×2 (09:00→21:00)
--- NOTE | 2018-02-01 10:25 | HHI.PR ---
Subjective Remarks Presented to bedside to evaluate patient for AROM, received epidural at approximately 8:50, received ephedrine for hypotension and FHR. FHR with baseline in 130s, good accels, and no decels noted. Upon presentation to the room, patient appeared very sleepy but was arousable after vigorous stimulation. Magnesium was discontinued immediately, and calcium gluconate ordered for suspected magnesium toxicity. Still awaiting a mag level that was ordered stat at 7:30am, will draw another lab for comparison. Patient reports she is sleepy, but now more arousable and alert than initially. Vital signs have remained stable, sPO2 100% throughout. SVE 5/80/-2 per RN after epidural. Will defer AROM for now and monitor closely. Objective Vital Signs Date Time Temp Pulse Resp B/P (MAP) Pulse Ox O2 Delivery O2 Flow Rate FiO2 02/01/18 06:55 101 02/01/18 06:50 98 02/01/18 06:45 102 02/01/18 06:45 98 109/65 (80) 02/01/18 06:40 95 02/01/18 06:35 96 02/01/18 06:30 92 02/01/18 06:30 93 126/74 (91) 02/01/18 06:25 91 02/01/18 06:20 98 02/01/18 06:15 96 118/63 (81) 02/01/18 06:15 98 02/01/18 06:10 100 02/01/18 06:05 98 02/01/18 06:00 18 02/01/18 06:00 94 02/01/18 06:00 103 128/80 (96) 02/01/18 05:59 98.4 02/01/18 05:59 97.8 02/01/18 05:55 99 02/01/18 05:50 101 02/01/18 05:45 104 02/01/18 05:45 101 124/70 (88) 02/01/18 05:40 106 02/01/18 05:35 103 02/01/18 05:30 101 118/69 (85) 02/01/18 05:30 95 02/01/18 05:25 99 02/01/18 05:20 99 02/01/18 05:15 108 116/61 (79) 3/16/18 05:15 100 02/01/18 05:10 101 02/01/18 05:05 98 02/01/18 05:00 100 02/01/18 05:00 99 132/68 (89) 02/01/18 04:55 96 02/01/18 04:50 95 02/01/18 04:45 96 02/01/18 04:45 93 127/69 (88) 02/01/18 04:40 93 02/01/18 04:35 91 02/01/18 04:30 95 125/69 (87) 02/01/18 04:30 91 02/01/18 04:25 89 02/01/18 04:20 87 02/01/18 04:15 94 02/01/18 04:15 96 118/69 (85) 02/01/18 04:10 90 02/01/18 04:05 99 02/01/18 04:00 93 125/71 (89) 02/01/18 04:00 91 02/01/18 03:55 90 02/01/18 03:50 89 02/01/18 03:47 97.6 16 02/01/18 03:45 87 02/01/18 03:45 89 119/67 (84) 02/01/18 03:40 84 02/01/18 03:35 92 02/01/18 03:30 88 02/01/18 03:30 90 121/65 (83) 02/01/18 03:25 90 02/01/18 03:20 87 02/01/18 03:15 86 02/01/18 03:15 85 125/63 (83) 02/01/18 03:10 88 02/01/18 03:05 88 02/01/18 03:00 90 02/01/18 03:00 91 121/69 (86) 02/01/18 02:55 89 02/01/18 02:50 90 02/01/18 02:45 85 02/01/18 02:45 87 119/66 (83) 02/01/18 02:40 87 02/01/18 02:35 90 02/01/18 02:30 90 120/60 (80) 02/01/18 02:30 84 02/01/18 02:25 88 02/01/18 02:20 86 02/01/18 02:15 83 02/01/18 02:15 82 115/62 (79) 02/01/18 02:13 97.6 16 02/01/18 02:10 88 02/01/18 02:08 83 115/58 (77) 02/01/18 02:05 89 02/01/18 02:00 94 125/65 (85) 02/01/18 02:00 87 02/01/18 01:55 90 02/01/18 01:50 90 02/01/18 01:45 94 121/67 (85) 02/01/18 01:45 86 02/01/18 01:40 92 02/01/18 01:35 90 02/01/18 01:30 89 116/65 (82) 02/01/18 01:30 87 02/01/18 01:25 92 02/01/18 01:20 90 02/01/18 01:15 92 120/63 (82) 02/01/18 01:15 82 02/01/18 01:10 97 02/01/18 01:05 95 02/01/18 01:01 98.3 16 02/01/18 01:00 94 117/66 (83) 02/01/18 01:00 90 02/01/18 00:55 91 02/01/18 00:50 93 02/01/18 00:45 116/62 (80) 02/01/18 00:45 94 02/01/18 00:45 88 02/01/18 00:40 98 02/01/18 00:35 93 02/01/18 00:30 118/67 (84) 02/01/18 00:30 94 02/01/18 00:30 97 02/01/18 00:25 97 02/01/18 00:24 18 02/01/18 00:20 98 02/01/18 00:15 18 134/69 (90) 02/01/18 00:10 99 02/01/18 00:00 98 02/01/18 00:00 97 118/70 (86) 01/31/18 23:55 98 01/31/18 23:50 101 01/31/18 23:45 92 01/31/18 23:45 97 111/55 (73) 01/31/18 23:40 103 3/15/18 23:35 102 01/31/18 23:34 99.1 16 01/31/18 23:33 97 118/65 (82) 01/31/18 23:30 103 123/59 (80) 01/31/18 23:30 98 01/31/18 23:05 109 01/31/18 23:00 105 01/31/18 23:00 109 127/73 (91) 01/31/18 22:35 103 01/31/18 22:30 112 01/31/18 22:30 108 126/73 (90) 01/31/18 22:29 16 01/31/18 22:25 110 100 01/31/18 22:21 99 128/75 (92) 01/31/18 22:20 107 100 01/31/18 22:15 102 100 01/31/18 21:55 105 100 01/31/18 21:50 105 100 01/31/18 21:45 103 100 01/31/18 21:25 113 100 01/31/18 21:20 102 100 01/31/18 21:15 109 100 01/31/18 20:45 18 01/31/18 20:45 98.0 01/31/18 20:40 104 129/72 (91) Result Diagram: 01/31/18 [id number] Rachel Antunez MD Feb 01, 2018 10:25
--- NOTE | 2018-02-01 12:05 | PD.OB.DELI ---
Weeks gestation: 39 Artificial rupture of membrane: Yes Anesthesia: Epidural Episiotomy: None Vaginal Delivery: Normal Presentation: Occiput anterior Nuchal Cord: None Delayed cord clamping (45 sec): Yes : Female, Single Delivery date: Feb 01, 2018 Delivery time: 11:55 One Minute : 7 Five Minute : 9 Weight: 2945 Placenta: Spontaneous delivery Laceration: No lacerations Estimated blood loss: 500 Fela Bledsoe MD R1 Feb 01, 2018 12:05
[2018-02-01] MEDS ORDERED: IBUPROFEN 800 MG TAB PO PRN (12:15)
[2018-02-01] MEDS ORDERED: DOCUSATE SODIUM 50 MG/SENNA 8.6 MG TAB PO PRN (12:15)
[2018-02-01] MEDS ORDERED: ONDANSETRON ODT 4 MG TAB PO PRN (12:15)
[2018-02-01] MEDS ORDERED: BENZOCAINE 20% TOPICAL SPRAY 60 ML CAN TOPICAL PRN (12:15)
[2018-02-01] MEDS ORDERED: SODIUM CHLORIDE 0.9% FLUSH 10 ML FLUSH IV FLUSH PRN (12:15)
[2018-02-01] MEDS ORDERED: WITCH HAZEL 50%/GLYCERIN 12.5% 40 PAD JAR TOPICAL PRN (12:15)
[2018-02-01] MEDS ORDERED: OXYTOCIN 30 UNITS-500ML PREMIX 500 ML IV SCH (12:15)
[2018-02-01] MEDS ORDERED: oxyCODONE/ACETAMINOPHEN 5 MG/325 MG TAB PO PRN (12:15)
[2018-02-01] MEDS ORDERED: ALUMINUM/MAGNESIUM/SIMETH 30 ML CUP PO PRN (12:15)
[2018-02-01] MEDS ORDERED: MEASLES, MUMPS, RUBELLA VACCINE 0.5 ML VIAL SQ ONE (16:00)
[2018-02-01] MEDS ORDERED: DIPHTH/TETANUS/ACEL PERTUSSIS (BOOSTER) 0.5 ML VIAL/PFS IM ONE (16:00)
[2018-02-01] MEDS ORDERED: ZOLPIDEM TARTRATE 5 MG TAB PO PRN (21:00)
--- NOTE | 2018-02-02 08:22 | HHI.OB ---
Subjective Post Day: 1 Remarks Patient seen and examined this morning. lieutenant general was obtained using [employer] software. AFVSS overnight. day #1. Patient reports her pain is well controlled, endorses cramping pain in the lower pelvic region bilaterally. Decreased lochia. Patient did pass a moderate sized vaginal blood clot during the interview. Patient reported this was her first blood clot passed. She reports prior to this she had had vaginal bleeding about the same or less than a normal period for her. No breast tenderness. She is feeding the baby via breast without issues, endorsing a good latch. Appetite good. No nausea or vomiting. Ambulating well. Denies fevers, calf pain, shortness of breath. She otherwise has no other complaints or concerns this morning. Objective Vitals/I&O Vital Signs Date Time Temp Pulse Resp B/P (MAP) Pulse Ox O2 Delivery O2 Flow Rate FiO2 02/01/18 15:00 98.2 105 18 125/73 (90) 02/01/18 14:00 103 126/62 (83) 02/01/18 14:00 98.8 18 02/01/18 13:45 97 122/67 (85) 02/01/18 13:30 96 118/79 (92) 02/01/18 13:25 103 02/01/18 13:20 104 02/01/18 13:15 106 130/78 (95) 02/01/18 13:10 98 02/01/18 13:05 99 02/01/18 13:00 96 02/01/18 13:00 102 115/69 (84) 02/01/18 13:00 18 02/01/18 12:55 106 02/01/18 12:50 102 02/01/18 12:45 101 02/01/18 12:45 103 123/71 (88) 02/01/18 12:40 104 02/01/18 12:35 104 02/01/18 12:30 102 02/01/18 12:30 103 118/72 (87) 02/01/18 12:15 104 02/01/18 12:15 100 129/59 (82) 02/01/18 12:10 101 02/01/18 12:08 104 117/57 (77) 02/01/18 12:05 104 3/16/18 12:00 98 118/65 (82) 02/01/18 12:00 101 02/01/18 11:55 118 02/01/18 11:50 118 02/01/18 11:45 130/64 (86) 02/01/18 11:45 110 02/01/18 11:45 116 02/01/18 11:40 122/73 (89) 02/01/18 11:40 114 02/01/18 11:40 108 02/01/18 11:35 109 02/01/18 11:30 110 125/62 (83) 02/01/18 11:30 114 02/01/18 11:25 107 02/01/18 11:20 109 02/01/18 11:20 110 118/62 (80) 02/01/18 11:15 108 02/01/18 11:10 107 125/68 (87) 02/01/18 11:10 111 02/01/18 11:05 109 02/01/18 11:00 111 125/70 (88) 02/01/18 11:00 105 02/01/18 10:55 114 02/01/18 10:50 109 02/01/18 10:50 110 133/63 (86) 02/01/18 10:45 109 02/01/18 10:41 110 120/71 (87) 02/01/18 10:40 109 02/01/18 10:35 115 02/01/18 10:30 113 02/01/18 10:30 18 02/01/18 10:30 114 102/60 (74) 02/01/18 10:25 115 02/01/18 10:20 122 02/01/18 10:20 121 111/57 (75) 02/01/18 10:15 116 02/01/18 10:10 116 100/42 (61) 18 10:10 115 18 10:05 114 18 10:00 116 100/43 (62) 02/01/18 10:00 114 18 09:55 116 101/41 (61) 18 09:55 116 18 09:51 116 99/41 (60) 02/01/18 09:50 116 18 09:48 118 98/43 (61) 02/01/18 09:45 118 102/42 (62) 02/01/18 09:45 118 02/01/18 09:42 113 99/43 (61) 02/01/18 09:40 112 02/01/18 09:39 113 101/44 (63) 02/01/18 09:36 117 99/40 (59) 02/01/18 09:35 110 02/01/18 09:34 112 103/47 (65) 02/01/18 09:33 105 89/33 (51) 02/01/18 09:31 109 90/37 (54) 02/01/18 09:30 106 02/01/18 09:30 108 81/66 (71) 02/01/18 09:27 106 106/48 (67) 02/01/18 09:25 107 02/01/18 09:24 106 108/54 (72) 02/01/18 09:21 113 109/58 (75) 02/01/18 09:20 109 02/01/18 09:18 113 104/44 (64) 02/01/18 09:15 115 02/01/18 09:15 116 106/50 (68) 02/01/18 09:12 98.8 02/01/18 09:12 120 109/46 (67) 02/01/18 09:10 113 02/01/18 09:09 116 94/48 (63) 02/01/18 09:07 108 105/55 (72) 02/01/18 09:06 115 95/46 (62) 02/01/18 09:05 118 02/01/18 09:03 128 121/54 (76) 02/01/18 09:00 139 131/66 (87) 02/01/18 09:00 16 02/01/18 08:57 115 113/57 (75) 02/01/18 08:55 104 02/01/18 08:54 104 92/40 (57) 02/01/18 08:51 98 81/41 (54) 02/01/18 08:50 101 02/01/18 08:48 104 102/53 (69) 02/01/18 08:45 105 148/60 (89) 02/01/18 08:45 103 02/01/18 08:42 101 98/55 (69) 02/01/18 08:41 99 114/55 (74) 02/01/18 08:40 109 02/01/18 08:30 110 02/01/18 08:30 18 02/01/18 08:30 104 109/63 (78) 02/01/18 08:25 103 100 Objective Remarks GENERAL: Well-nourished, well-developed patient. NEURO: AOx3. Normal speech. Patellar and Achilles reflex 2+ bilaterally. Gait normal. CARDIOVASCULAR: Regular rate and rhythm without murmurs, gallops, or rubs. RESPIRATORY: Breath sounds equal bilaterally. No accessory muscle use. ABDOMEN/GI: Abdomen soft, non-tender. Fundus: Firm, non-tender at umbilicus. GENITOURINARY: Light to moderate bleeding. EXTREMITIES: No cyanosis or edema, non-tender, without signs of DVT. Medications and IVs Current Medications Medications (Trade) Dose Ordered Sig/Michel Route Start Time Stop Time Status Last Admin (NS Flush) 2 ml BID IV FLUSH 02/01/18 21:00 (NS Flush) 2 ml UNSCH PRN IV FLUSH 02/01/18 12:15 (Tylenol) 650 mg Q4H PRN PO 02/01/18 12:15 02/01/18 17:48 (Motrin) 800 mg Q8H PRN PO 02/01/18 12:15 02/02/18 05:31 (Percocet 5-325 Mg) 1 tab Q4H PRN PO 02/01/18 12:15 (Percocet 5-325 Mg) 2 tab Q4H PRN PO 02/01/18 12:15 (Americaine 20% Top Spr) 1 spray Q4H PRN TOPICAL 02/01/18 12:15 (Tucks Pads) 1 applic QID PRN TOPICAL 02/01/18 12:15 (Nandini-Colace) 2 tab Q12H PRN PO 02/01/18 12:15 (Ambien) 5 mg HS PRN PO 02/01/18 21:00 (Mag-Al Plus Susp Liq) 15 ml Q8H PRN PO 02/01/18 12:15 (Zofran Odt) 4 mg Q6H PRN PO 02/01/18 12:15 Assessment/Plan Assessment and Plan 23 year old now PPD#1. 1. Care - AFVSS - Encouraged OOB, as tolerated - Motrin or Percocet prn pain - Advised pelvic rest x 6 weeks - - Contraception: Discussed with patient this AM, patient desiring Depo-Provera - Instructed patient to f/u with OB provider within 6 weeks 2. Elevated creatinine / proteinuria - DDX includes preeclampsia, pre-existing underlying renal disease, nephrotic syndrome - Will repeat Cr - Avoid NSAIDs - Consider nephrology consultation pending repeat Cr value - Will advise outpatient follow up with nephrology if consultation not placed while inpatient for further workup 3. Magnesium toxicity - Patient alert and oriented - Reflexes 2+ - Repeat Mg level this AM 2.9 dw Donnie Wheat MD Feb 02, 2018 08:22
[2018-02-02 09:00] VITALS: BP 102/59; PULSE 98; RESP 18; TEMP 98.8
[2018-02-02] MEDS ORDERED: medroxyPROGESTERone ACETATE SUSP 150 MG/ML SYRINGE IM ONE (09:45)
[2018-02-02 11:18] LABS: CREATININE 1.67 MG/DL (0.50-1.00)
[2018-02-02] MEDS: ACETAMINOPHEN 325 MG TAB PO PRN ×3 (12:21→23:12)
[2018-02-02 20:15] VITALS: BP 109/67; PULSE 91; RESP 18; TEMP 98.3
[2018-02-03] MEDS: oxyCODONE/ACETAMINOPHEN 5 MG/325 MG TAB PO PRN ×2 (03:22→09:23)
--- NOTE | 2018-02-03 07:56 | HHI.OB ---
Subjective Post Day: 2 Remarks Patient seen and examined this morning. plate washer was obtained using the [employer] computer software. AFVSS overnight. day #2. Patient reports her pain is well controlled, overall about a 4-5/10 in the lower pelvic area. Decreased lochia. Patient reports she has not passed any further vaginal blood clots since yesterday morning. States the vaginal bleeding has decreased overall. No breast tenderness. She is feeding the baby via breast without issues , endorsing a good latch. Appetite good without nausea or vomiting. Ambulating well without issues. Denies fevers, chest pain, calf pain, shortness of breath. She otherwise has no other complaints or concerns this morning. Objective Vitals/I&O Vital Signs Date Time Temp Pulse Resp B/P (MAP) Pulse Ox O2 Delivery O2 Flow Rate FiO2 02/02/18 20:15 91 18 109/67 (81) 02/02/18 20:15 98.3 02/02/18 09:00 98 102/59 (73) 02/02/18 09:00 98.8 18 Objective Remarks GENERAL: Well-nourished, well-developed patient. NEURO: AOx3. Normal speech. Patellar and Achilles reflex 2+ bilaterally. Gait normal. CARDIOVASCULAR: Regular rate and rhythm without murmurs, gallops, or rubs. RESPIRATORY: Breath sounds equal bilaterally. No accessory muscle use. ABDOMEN/GI: Abdomen soft, non-tender. Fundus: Firm, non-tender at umbilicus. GENITOURINARY: Light to moderate bleeding. EXTREMITIES: No cyanosis or edema, non-tender, without signs of DVT. Medications and IVs Current Medications Medications (Trade) Dose Ordered Sig/Michel Route Start Time Stop Time Status Last Admin (NS Flush) 2 ml BID IV FLUSH 02/01/18 21:00 (NS Flush) 2 ml UNSCH PRN IV FLUSH 02/01/18 12:15 (Tylenol) 650 mg Q4H PRN PO 02/01/18 12:15 02/02/18 23:12 (Percocet 5-325 Mg) 1 tab Q4H PRN PO 02/01/18 12:15 02/03/18 03:22 (Percocet 5-325 Mg) 2 tab Q4H PRN PO 02/01/18 12:15 (Americaine 20% Top Spr) 1 spray Q4H PRN TOPICAL 02/01/18 12:15 (Tucks Pads) 1 applic QID PRN TOPICAL 02/01/18 12:15 (Nandini-Colace) 2 tab Q12H PRN PO 02/01/18 12:15 (Ambien) 5 mg HS PRN PO 02/01/18 21:00 (Mag-Al Plus Susp Liq) 15 ml Q8H PRN PO 02/01/18 12:15 (Zofran Odt) 4 mg Q6H PRN PO 02/01/18 12:15 Assessment/Plan Assessment and Plan 23 year old now PPD#2. 1. Care - AFVSS - Encouraged OOB, as tolerated - Motrin prn pain - Advised pelvic rest x 6 weeks - - Contraception: Patient desiring Depo-Provera - Instructed patient to f/u with OB provider within 6 weeks 2. Elevated creatinine / proteinuria - DDX includes preeclampsia, pre-existing underlying renal disease, nephrotic syndrome - Repeat Cr stable - Avoid NSAIDs - Advised outpatient follow up with nephrology in four weeks, repeat Cr one week prior to appointment 3. Magnesium toxicity - Patient alert and oriented - Reflexes 2+ - Repeat Mg level 2.[address] Hopper Discharge Planning Stable for discharge home today Donnie Valdez MD Feb 03, 2018 07:56
[2018-02-03] MEDS ORDERED: PERI PO (07:57)
--- NOTE | 2018-02-03 07:58 | HHI.DCPOC ---
Discharge Care Plan Diagnosis: (1) Proteinuria affecting in third trimester (2) care following vaginal delivery Report Symptoms to Your Doctor -Temperature above 100.5 degrees -Redness, of incision or excessive or foul smelling drainage -Unusual pain or calf pain -Increased vaginal bleeding -Painful or difficulty urinating -Feelings of extreme sadness or anxiety after 2 weeks Goals to Promote Your Health * To prevent worsening of your condition and complications, and to maintain your health at the optimal level, follow up with your OB provider and a kidney doctor within four weeks after leaving the hospital. Directions to Meet Your Goals Take your medications as prescribed Follow your dietary instruction Follow activity as directed Ensure plenty of rest for recovery Drink fluids for hydration Keep your appointments as scheduled Take your immunizations and boosters as scheduled If your symptoms worsen call your PCP, if no PCP go to Urgent Care Center or Emergency Room Smoking is Dangerous to Your Health. Avoid second hand smoke Call the 24-hour crisis hotline for domestic abuse at Donnie Valdez MD Feb 03, 2018 07:58
[2018-02-03 08:10] VITALS: BP 111/66; PULSE 81; RESP 16; TEMP 97.8
[2018-02-03] MEDS ORDERED: medroxyPROGESTERone ACETATE SUSP 150 MG/ML SYRINGE IM ONE (09:15)
== END 2018-02-03 14:51 | disposition home or self-care (01) | DRG 775 ==
LOC: EDBD 19:21 → HOBED 19:21 → H2EB 01-31 20:01 → H1EA 02-01 14:40
PROVIDERS: ADMIT Obstetrics & Gynecology; ATTEND Obstetrics & Gynecology
PROC: 00HU33Z Insertion of Infusion Device into Spinal Canal, Percutaneous Approach (ICD-10-PCS; 2018-01-31)
PROC: 3E0R3BZ Introduction of Anesthetic Agent into Spinal Canal, Percutaneous Approach (ICD-10-PCS; 2018-01-31)
PROC: 10907ZC Drainage of Amniotic Fluid, Therapeutic from Products of Conception, Via Natural or Artificial Opening (ICD-10-PCS; 2018-01-31)
PROC: 10E0XZZ Delivery of Products of Conception, External Approach (ICD-10-PCS; principal; 2018-02-01)
DX: O36.8130 Decreased fetal movements, third trimester, not applicable or unspecified (principal); I95.9 Hypotension, unspecified; O26.893 Other specified pregnancy related conditions, third trimester; O12.14 Gestational proteinuria, complicating childbirth; R51 Headache; R79.89 Other specified abnormal findings of blood chemistry; Z3A.39 39 weeks gestation of pregnancy; Z37.0 Single live birth; Z23 Encounter for immunization
CPT/HCPCS: 59025; 76819; 80048; 80053; 80307; 81001; 83735; 85025; 86900; 86901; 88307; 99285; G0481; J2590; J3010; J3475; J7120

== ENCOUNTER 2018-04-25 20:05 | Emergency (ER) | payer MEDICAID, OTHER ==
[~2018-04-25] VITALS: Ht 167.6 cm; Wt 76.0 kg
[~2018-04-25 20:05] MED LIST changes: -ACET325T PO; -CALNTAB; +PERI PO; +PREN29TA PO
[2018-04-25 20:19] VITALS: BP 112/56; PULSE 95; RESP 16; TEMP 100.4; O2SAT 97
--- NOTE | 2018-04-25 22:24 | PD ---
HPI Chief Complaint: GI Complaint Time Seen by Provider: 21:44 Travel History International Travel<30 days: No Contact w/Intl Traveler<30days: No Traveled to known affect area: No History of Present Illness HPI 23-year-old female came to the emergency with her with history of fever , body aches, nausea, vomiting and diarrhea since this morning. Patient took some Sudafed this noon but symptoms were not getting better and decided to come to the emergency room. Patient had a temperature of 100.4 in triage. Patient does not speak Bangladeshi and the speaks broken Bangladeshi and has been helping with some translation. Patient has a 2-month-old baby at home. No other symptoms. No known sick contacts. [facility] Past Medical History Narrative Medical List of her past medical, surgical, social and family history is reviewed from the nursing note Medical History: Denies Significant Hx Immunizations Current: Yes Tetanus Vaccination: < 5 Years Influenza Vaccination: Yes ?: Not LMP: 04/07/18 : 1 Social History Alcohol Use: No Tobacco Use: No Substance Use: No Allergies-Medications (Allergen,Severity, Reaction): Coded Allergies: No Known Allergies (Unverified Allergy, Unknown, 04/25/18) Comments No known drug allergies. Reported Meds & Prescriptions Reported Meds & Active Scripts Active Macrobid (Nitrofurantoin Monoh/Nitrofur Macro) 100 Mg Cap 100 Mg PO BID 10 Days Narrative Medication List of her home medications reviewed from the nursing note. Review of Systems Except as stated in HPI: all other systems reviewed are Neg General / Constitutional: Positive: Fever Gastrointestinal: Positive: Nausea, Vomiting, Diarrhea Musculoskeletal: Positive: Myalgias Physical Exam Narrative GENERAL: Awake, alert, moderate distress SKIN: Focused skin assessment warm/dry. Acne skin HEAD: Atraumatic. Normocephalic. EYES: Pupils equal and round. No scleral icterus. No injection or drainage. ENT: No nasal bleeding or discharge. Mucous membranes pink and moist. NECK: Trachea midline. No JVD. CARDIOVASCULAR: Regular rate and rhythm. No murmur appreciated. RESPIRATORY: No accessory muscle use. Clear to auscultation. Breath sounds equal bilaterally. GASTROINTESTINAL: Abdomen soft, non-tender, nondistended. Hepatic and splenic margins not palpable. MUSCULOSKELETAL: No obvious deformities. No clubbing. No cyanosis. No edema. NEUROLOGICAL: Awake and alert. No obvious cranial nerve deficits. Motor grossly within normal limits. Normal speech. PSYCHIATRIC: Appropriate mood and affect; insight and judgment normal. Data Data Last Documented VS Orders Orders Sepsis Workup Initiated (04/25/18 ) Complete Blood Count With Diff (04/25/18 22:24) Comprehensive Metabolic Panel (04/25/18 22:24) Lactic Acid Sepsis Protocol (04/25/18 22:24) Urinalysis - C+S If Indicated (04/25/18 22:24) Blood Culture (04/25/18 22:24) Chest, Single Ap (04/25/18 22:24) Blood Glucose (04/25/18 22:24) Ecg Monitoring (04/25/18 22:24) Iv Access Insert/Monitor (04/25/18 22:24) Oximetry (04/25/18 22:24) Oxygen Administration (04/25/18 22:24) Ed Urine Pregnancytest Poc (04/25/18 22:24) Sodium Chlor 0.9% 1000 Ml Inj (Ns 1000 M (04/25/18 22:30) Acetaminophen (Tylenol) (04/25/18 22:45) Influenzae A/B Antigen (04/25/18 22:37) Urine Culture (04/25/18 22:35) Sodium Chlor 0.9% 1000 Ml Inj (Ns 1000 M (04/26/18 00:00) Ceftriaxone Inj (Rocephin Inj) (04/26/18 00:00) Potassium Chloride Eff (K-Lyte Cl Eff) (04/26/18 00:00) Ed Discharge Order (04/25/18 23:58) Labs Laboratory Tests Test 04/25/18 22:35 04/25/18 22:50 Urine Color LIGHT-YELLOW Urine Turbidity HAZY Urine pH 6.0 Urine Specific [place] 1.011 Urine Protein 300 mg/dL Urine Glucose (UA) NEG mg/dL Urine Ketones NEG mg/dL Urine Occult Blood SMALL Urine Nitrite NEG Urine Bilirubin NEG Urine Urobilinogen LESS THAN 2.0 MG/DL Urine Leukocyte Esterase NEG Urine RBC 6 /hpf Urine WBC 1 /hpf Urine Squamous Epithelial Cells 1 /hpf Urine Amorphous Sediment RARE Urine Bacteria RARE /hpf Urine Mucus FEW /lpf Microscopic Urinalysis Comment CATH-CULTURE IND White Blood Count 6.3 TH/MM3 Red Blood Count 4.36 MIL/MM3 Hemoglobin 11.6 GM/DL Hematocrit 34.9 % Mean Corpuscular Volume 80.0 FL Mean Corpuscular Hemoglobin 26.7 PG Mean Corpuscular Hemoglobin Concent 33.3 % Red Cell Distribution Width 14.6 % Platelet Count 374 TH/MM3 Mean Platelet Volume 6.5 FL Neutrophils (%) (Auto) 73.5 % Lymphocytes (%) (Auto) 17.6 % Monocytes (%) (Auto) 6.5 % Eosinophils (%) (Auto) 2.2 % Basophils (%) (Auto) 0.2 % Neutrophils # (Auto) 4.6 TH/MM3 Lymphocytes # (Auto) 1.1 TH/MM3 Monocytes # (Auto) 0.4 TH/MM3 Eosinophils # (Auto) 0.1 TH/MM3 Basophils # (Auto) 0.0 TH/MM3 CBC Comment DIFF FINAL Differential Comment Blood Urea Nitrogen 20 MG/DL Creatinine 1.48 MG/DL Random Glucose 90 MG/DL Total Protein 7.1 GM/DL Albumin 2.8 GM/DL Calcium Level 8.6 MG/DL Alkaline Phosphatase 96 U/L Aspartate Amino Transf (AST/SGOT) 19 U/L Alanine Aminotransferase (ALT/SGPT) 36 U/L Total Bilirubin 0.3 MG/DL Sodium Level 141 MEQ/L Potassium Level 3.2 MEQ/L Chloride Level 107 MEQ/L Carbon Dioxide Level 21.1 MEQ/L Anion Gap 13 MEQ/L Estimat Glomerular Filtration Rate 43 ML/MIN Lactic Acid Level 0.5 mmol/L MDM Medical Decision Making Medical Screen Exam Complete: Yes Emergency Medical Condition: Yes Medical Record Reviewed: Yes Differential Diagnosis Influenza, viral illness, UTI, pneumonia Narrative Course 11:55 PM blood test results are back and patient show some dehydration. She is getting 2 L of IV fluid bolus. She was given Tylenol for her fever. Influenza is negative. UA is positive for possible UTI. Have given her a dose of Rocephin and I will send her home on Macrobid. Patient will be discharged home. Procedures EKG Prior to Arrival: No Diagnosis Primary Impression: Possible urinary tract infection Additional Impressions: Fever Qualified Codes: R50.9 - Fever, unspecified Dehydration Additional Instructions: Drink lots of fluid. Take Tylenol/Motrin/ibuprofen/Advil for body aches and/or fever. Take the medication as per the prescription direction. Return to the ER if condition worsen or any other new concerns. Med/Other Pt SpecificInfo: Prescription(s) given Scripts Nitrofurantoin Monohydrate Macrocrystals (Macrobid) 100 Mg Cap 100 MG PO BID for Infection for 10 Days, #20 CAP 0 Refills Prov: Ruy Fournier MD 04/25/18 Disposition: 01 DISCHARGE HOME Condition: Stable Ruy Fournier MD Apr 25, 2018 22:24
[2018-04-25] MEDS ORDERED: SODIUM CHLOR 0.9% 1000 ML INJ 1,000 ML IV ONE (22:30)
[2018-04-25 22:37] VITALS: RESP 20
--- NOTE | 2018-04-25 22:41 | RADRPT ---
EXAM DATE: 04/25/2018 10:35 PM EDT AGE/SEX: 23 years / Female INDICATIONS: Cough CLINICAL DATA: This is the patient's initial encounter. Patient reports that signs and symptoms have been present for 1 day and indicates a pain score of 3/10. MEDICAL/SURGICAL HISTORY: None. None. COMPARISON: No prior exams available for comparison. FINDINGS: Portable AP view of the chest demonstrates a normal-sized cardiac silhouette. The lungs demonstrate n o definite effusion, consolidation, or pneumothorax. The bones and soft tissues demonstrate no acute finding. CONCLUSION: No acute cardiopulmonary abnormality is identified. Electronically signed by: Enrike Weiner MD 04/25/2018 10:39 PM EDT
[2018-04-25] MEDS ORDERED: ACETAMINOPHEN 325 MG TAB PO ONE (22:45)
[2018-04-25 23:13] LABS: AMORPHOUS SEDIMENT, URINE RARE; BACTERIA, URINE RARE /hpf; BILIRUBIN, URINE NEG (NEG); BLOOD, URINE SMALL (NEG); GLUCOSE,URINE NEG (NEG); KETONE, URINE NEG (NEG); MUCUS URINE FEW /lpf (OCC); NITRITE,URINE NEG (NEG); SQUAMOUS EPITHELIAL CELL URINE 1 /hpf (0-5); URINE COLOR LIGHT-YELLOW (YELLW/STRAW); URINE LEUKOCYTE ESTERASE NEG (NEG)
[2018-04-25 23:16] LABS: AUTOMATED NEUTROPHIL # 4.6 TH/MM3 (1.8-7.7); BASOPHIL % 0.2 % (0.0-2.0); EOSINOPHIL # 0.1 TH/MM3 (0-0.4); EOSINOPHIL % 2.2 % (0.0-4.0); HEMATOCRIT 34.9 % (35.0-46.0); HEMOGLOBIN 11.6 GM/DL (11.6-15.3); LYMPH % 17.6 % (9.0-44.0); LYMPHOCYTE # 1.1 TH/MM3 (1.0-4.8); MEAN CORPUSCULAR HEMOGLOBIN 26.7 PG (27.0-34.0); MEAN CORPUSCULAR HGB CONC 33.3 % (32.0-36.0); MEAN PLATELET VOLUME 6.5 FL (7.0-11.0); MONO % 6.5 % (0.0-8.0); MONOCYTE # 0.4 TH/MM3 (0-0.9); NEUT % 73.5 % (16.0-70.0); PLATELET COUNT 374 TH/MM3 (150-450); RED BLOOD COUNT 4.36 MIL/MM3 (4.00-5.30); RED CELL DISTRIBUTION WIDTH 14.6 % (11.6-17.2); WHITE BLOOD COUNT 6.3 TH/MM3 (4.0-11.0)
[2018-04-25 23:26] LABS: ALBUMIN 2.8 GM/DL (3.4-5.0); AST (GOT) 19 U/L (15-37); BICARBONATE 21.1 MEQ/L (21.0-32.0); BLOOD UREA NITROGEN 20 MG/DL (7-18); CALCIUM 8.6 MG/DL (8.5-10.1); CHLORIDE 107 MEQ/L (98-107); CREATININE 1.48 MG/DL (0.50-1.00); GLOMERULAR FILTRATION RATE 43 ML/MIN (>89); GLUCOSE,RANDOM 90 MG/DL (74-106); SODIUM (NA) 141 MEQ/L (136-145)
[2018-04-25 23:27] LABS: ALT (GPT) 36 U/L (10-53)
[2018-04-25 23:29] LABS: ALKALINE PHOSPHATASE 96 U/L (45-117); TOTAL BILIRUBIN ADULT 0.3 MG/DL (0.2-1.0); TOTAL PROTEIN 7.1 GM/DL (6.4-8.2)
[2018-04-25] MEDS ORDERED: MACR100C2 PO (23:57)
[2018-04-26] MEDS ORDERED: POTASSIUM CHLORIDE 25 MEQ EFFERVESCENT TAB PO ONE
[2018-04-26] MEDS ORDERED: cefTRIAXone INJ 1,000 MG in SODIUM CHLORIDE 0.9% INJ 100 ML IV ONE ×2
[2018-04-26] MEDS ORDERED: SODIUM CHLOR 0.9% 1000 ML INJ 1,000 ML IV ONE
== END 2018-04-26 02:54 | disposition home or self-care (01) ==
LOC: NEPD 20:05
DX: R50.9 Fever, unspecified (principal); E86.0 Dehydration; R11.2 Nausea with vomiting, unspecified; R19.7 Diarrhea, unspecified; M79.1 Myalgia
CPT/HCPCS: 71045; 80053; 81001; 83605; 84703; 85025; 87040; 87086; 87804; 96361; 96365; 99284; J0696; J7030